=== PATIENT | male | born 1970 | race Caucasian/White ===

== ENCOUNTER 2017-07-02 03:55 | Observation (INO) | payer OTHER ==
[~2017-07-02] VITALS: Ht 175.3 cm; Wt 95.7 kg
[~2017-07-02 03:55] MED LIST: ACHD5005 PO; IBP200T PO; LEVO500T69 PO; METH4TAB PO; NAPR-243 PO
[2017-07-02] MEDS ORDERED: ASPIRIN 81 MG CHEW (CHILDREN'S ASA) PO ONE (04:00)
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
[2017-07-02 04:18] LABS: BASOPHILS % (AUTO) 0 % (0-10); EOSINOPHILS # (AUTO) 0.2 10^3/uL (0.0-0.3); EOSINOPHILS % (AUTO) 3 % (0-10); LYMPHOCYTES # (AUTO) 2.3 X 10^3 (1.0-4.0); LYMPHOCYTES % (AUTO) 25 % (12-44); MEAN CORPUSCULAR HEMOGLOBIN 30 PG (25-34); MEAN CORPUSCULAR HGB CONC 34 G/DL (32-36); MEAN CORPUSCULAR VOLUME 89 FL (80-99); MEAN PLATELET VOLUME 9.1 FL (7.4-10.4); MONOCYTES # (AUTO) 0.7 X 10^3 (0.0-1.0); MONOCYTES % (AUTO) 8 % (0-12); NEUTROPHILS # (AUTO) 5.7 X 10^3 (1.8-7.8); NEUTROPHILS % (AUTO) 64 % (42-75); PLATELET COUNT 199 10^3/uL (130-400); RED BLOOD COUNT 4.92 10^6/uL (4.35-5.85); RED CELL DISTRIBUTION WIDTH 13.1 % (10.0-14.5); WHITE BLOOD COUNT 8.9 10^3/uL (4.3-11.0)
[2017-07-02 04:28] LABS: PROTHROMBIN TIME PATIENT 13.3 SEC (12.2-14.7)
--- NOTE | 2017-07-02 04:30 | ED Chest Pain ---
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 VSS. Nursing Sepsis Screen: No Definite Risk Source: patient, EMS Exam Limitations: no limitations History of Present Illness Time seen by provider: 03:58 Initial Comments Here with report of central chest pain that he is describing poorly. States that is been going on for a few hours. He only identified it after he was arrested. Admits to smoking a large amount of methamphetamine tonight. Complains of not feeling well overall and body shaking. Denies nausea, vomiting , diaphoresis but does report breathing problems. Timing/Duration: 1-3 hours Severity/Quality: moderate, severe, other (pain) Location: central Radiation: no radiation Activities at Onset: other (smoking methamphetamine and being arrested) Prior CP/Workup: no prior cardiac workup Modifying Factors: improves with rest ASA po RECRUITER ACCOUNT MANAGER: No NTG SL RECRUITER ACCOUNT MANAGER: No Associated Symptoms: No abdominal pain, No back pain, No diaphoresis, fatigue, fever/chills, No nausea/vomiting, shortness of breath, weakness Allergies and Home Medications Allergies Coded Allergies: acetaminophen (Verified Adverse Reaction, 11/12/11) NAUSEA oxycodone HCl (Verified Adverse Reaction, 11/12/11) NAUSEA Home Medications Ibuprofen 200 Mg Tablet, 2-3 EACH PO TID - QID PRN PRN for PAIN, #20 Prescribed by: LJ THAKKAR on 06/19/132057 Review of Systems Constitutional: see HPI, No chills, No fever EENTM: No Symptoms Reported Respiratory: See HPI, Denies Cough, Shortness of Air Cardiovascular: Chest Pain, Denies Edema, Denies Irregular Heart Rate Gastrointestinal: No Symptoms Reported, Denies Nausea, Denies Vomiting Genitourinary: No Symptoms Reported Musculoskeletal: no symptoms reported Skin: no symptoms reported Psychiatric/Neurological: See HPI Endocrine: No Symptoms Reported All Other Systems Reviewed Negative Unless Noted: Yes Past Wybpgxs-Xyqwul-Hmbkhp Hx Patient Social History Alcohol Use: Denies Use Recreational Drug Use: Yes (smokes meth daily) Smoking Status: Current Everyday Smoker Type Used: Cigarettes 2nd Hand Smoke Exposure: No Recent Foreign Travel: No Contact w/Someone Who Travel: No Recent Infectious Disease Expo: No Physical Abuse: No Sexual Abuse: No Mistreated: No Fear: No Immunizations Up To Date Tetanus Booster (TDap): Less than 5yrs Surgeries History of Surgeries: Yes (L EYE) Respiratory History of Respiratory Disorde: No Cardiovascular History of Cardiac Disorders: No Neurological History of Neurological Disord: No Reproductive System Hx Reproductive Disorders: No HIV/AIDS: No Gastrointestinal History of Gastrointestinal Di: No Musculoskeletal History of Musculoskeletal Dis: No Endocrine History of Endocrine Disorders: No Cancer History of Cancer: No Psychosocial History of Psychiatric Problem: Yes Behavioral Health Disorders: Schizophrenia Suicide Risk Score: 0 Integumentary History of Skin or Integumenta: No Blood Transfusions History of Blood Disorders: No Adverse Reaction to a Blood Tr: No Reviewed Nursing Assessment Reviewed/Agree w Nursing PMH: Yes Family Medical History Significant Family History: No Pertinent Family Hx Physical Exam Vital Signs Vital Sign - Last 12Hours 07/02/17 04:00 Temp 98.4 Pulse 92 Resp 18 B/P (MAP) 134/86 (102) Pulse Ox 95 O2 Delivery Room Air Capillary Refill : Less Than 3 Seconds General Appearance: WD/WN, Anxious HEENT: PERRL/EOMI, Pharynx Normal Neck: Non Tender, Supple Respiratory: Lungs Clear, Normal Breath Sounds Cardiovascular: Regular Rate, Rhythm, No Edema, No Murmur Gastrointestinal: Non Tender, Soft Extremity: Normal Range of Motion, Non Tender Neurologic/Psychiatric: Alert, Oriented x3 Skin: Normal Color, Warm/Dry Progress/Results/Core Measures Results/Orders Lab Results Laboratory Tests Test 07/02/17 04:05 07/02/17 04:50 07/02/17 05:07 Range/Units White Blood Count 8.9 4.3-11.0 10^3/uL Red Blood Count 4.92 4.35-5.85 10^6/uL Hemoglobin 14.9 13.3-17.7 G/DL Hematocrit 44 40-54 % Mean Corpuscular Volume 89 80-99 FL Mean Corpuscular Hemoglobin 30 25-34 PG Mean Corpuscular Hemoglobin Concent 34 32-36 G/DL Red Cell Distribution Width 13.1 10.0-14.5 % Platelet Count 199 130-400 10^3/uL Mean Platelet Volume 9.1 7.4-10.4 FL Neutrophils (%) (Auto) 64 42-75 % Lymphocytes (%) (Auto) 25 12-44 % Monocytes (%) (Auto) 8 0-12 % Eosinophils (%) (Auto) 3 0-10 % Basophils (%) (Auto) 0 0-10 % Neutrophils # (Auto) 5.7 1.8-7.8 X 10^3 Lymphocytes # (Auto) 2.3 1.0-4.0 X 10^3 Monocytes # (Auto) 0.7 0.0-1.0 X 10^3 Eosinophils # (Auto) 0.2 0.0-0.3 10^3/uL Basophils # (Auto) 0.0 0.0-0.1 10^3/uL Prothrombin Time 13.3 12.2-14.7 SEC INR Comment 1.0 0.8-1.4 Activated Partial Thromboplast Time 30 24-35 SEC Sodium Level 140 135-145 MMOL/L Potassium Level 3.9 3.6-5.0 MMOL/L Chloride Level 105 98-107 MMOL/L Carbon Dioxide Level 27 21-32 MMOL/L Anion Gap 8 5-14 MMOL/L Blood Urea Nitrogen 18 7-18 MG/DL Creatinine 1.01 0.60-1.30 MG/DL Estimat Glomerular Filtration Rate > 60 BUN/Creatinine Ratio 18 Glucose Level 99 70-105 MG/DL Calcium Level 8.7 8.5-10.1 MG/DL Magnesium Level 2.3 1.8-2.4 MG/DL Total Bilirubin 0.7 0.1-1.0 MG/DL Aspartate Amino Transf (AST/SGOT) 53 H 5-34 U/L Alanine Aminotransferase (ALT/SGPT) 93 H 0-55 U/L Alkaline Phosphatase 72 40-136 U/L Myoglobin 235.5 H 10.0-92.0 NG/ML Troponin I < 0.30 <0.30 NG/ML Total Protein 7.5 6.4-8.2 GM/DL Albumin 3.9 3.2-4.5 GM/DL Amylase Level 45 25-125 U/L Lipase 22 8-78 U/L Urine Color YELLOW Urine Clarity CLEAR Urine pH 7 5-9 Urine Specific [place] 1.010 L 1.016-1.022 Urine Protein NEGATIVE NEGATIVE Urine Glucose (UA) NEGATIVE NEGATIVE Urine Ketones NEGATIVE NEGATIVE Urine Nitrite NEGATIVE NEGATIVE Urine Bilirubin NEGATIVE NEGATIVE Urine Urobilinogen NORMAL NORMAL MG/DL Urine Leukocyte Esterase 1+ H NEGATIVE Urine RBC (Auto) 4+ H NEGATIVE Urine RBC 10-25 H /HPF Urine WBC 0-2 /HPF Urine Squamous Epithelial Cells NONE /HPF Urine Renal Epithelial Cells RARE /HPF Urine Crystals PRESENT H /LPF Urine Amorphous Sediment FEW TAINA PHOSPHATE H /LPF Urine Bacteria TRACE /HPF Urine Casts NONE /LPF Urine Mucus SMALL H /LPF Urine Culture Indicated NO Urine Opiates Screen NEGATIVE NEGATIVE Urine Oxycodone Screen NEGATIVE NEGATIVE Urine Methadone Screen NEGATIVE NEGATIVE Urine Propoxyphene Screen NEGATIVE NEGATIVE Urine Barbiturates Screen NEGATIVE NEGATIVE Ur Tricyclic Antidepressants Screen NEGATIVE NEGATIVE Urine Phencyclidine Screen NEGATIVE NEGATIVE Urine Amphetamines Screen POSITIVE H NEGATIVE Urine Methamphetamines Screen NEGATIVE NEGATIVE Urine Benzodiazepines Screen NEGATIVE NEGATIVE Urine Cocaine Screen NEGATIVE NEGATIVE Urine Cannabinoids Screen NEGATIVE NEGATIVE My Orders Orders - LYNN GRAHAM MD Cbc With Automated Diff (07/02/17 04:00) Magnesium (07/02/17 04:00) Chest 1 View, Ap/Pa Only (07/02/17 04:00) Ekg Tracing (07/02/17 04:00) Cardiac Profile 1 (07/02/17 04:00) Comprehensive Metabolic Panel (07/02/17 04:00) Myoglobin Serum (07/02/17 04:00) Protime With Inr (07/02/17 04:00) Partial Thromboplastin Time (07/02/17 04:00) O2 (07/02/17 04:00) Monitor-Rhythm Ecg Trace Only (07/02/17 04:00) Lipid Panel (07/03/17 06:00) Aspirin Chewable Tablet (Baby Aspirin Ch (07/02/17 04:00) Saline Lock/Iv-Start (07/02/17 04:00) Lipase (07/02/17 04:00) Amylase (07/02/17 04:00) Drug Screen Stat (Urine) (07/02/17 04:00) Ua Culture If Indicated (07/02/17 04:00) Creatine Kinase (07/02/17 06:58) Ns Iv 1000 Ml (Sodium Chloride 0.9%) (07/02/17 07:14) Medications Given in ED Current Medications Medications Dose Ordered Sig/Joe Route Start Time Stop Time Status Last Admin Dose Admin Aspirin 324 mg ONCE ONCE PO 07/02/17 04:00 07/02/17 04:02 DC 07/02/17 04:09 324 MG Vital Signs/I&O Vital Sign - Last 12Hours 07/02/17 07/02/17 04:00 04:05 Temp 98.4 Pulse 92 Resp 18 B/P (MAP) 134/86 (102) Pulse Ox 95 96 O2 Delivery Room Air Room Air Blood Pressure Mean: 102 Progress Note : Progress Note Seen and evaluated. IV, labs, EKG and chest x-ray ordered. ASA 324 mg by mouth ordered. Monitor patient. 0600: Myoglobin is elevated. This may be from methamphetamine but cannot rule out cardiac event. Patient will require admission for further rule out of his chest pain. I did discuss the case with Dr. Devries at [phone] and she accepts patient for admission, observation status. Patient is currently pain-free. 1 L normal saline initiated. We will add total CK as myoglobin is elevated. Patient agrees to plan. ECG Initial ECG Impression Date: Jul 02, 2017 Initial ECG Impression Time: 04:01 Initial ECG Rate: 86 Initial ECG Rhythm: Normal Sinus Comment Sinus rhythm with left atrial abnormality. No evidence of ST elevation IA. Similar to previous of May. Interpreted by me. Diagnostic Imaging Diagonstic Imaging: Xray Plain Films/CT/US/NM/MRI: chest Comments No acute findings. Reviewed: Reviewed by Me Departure Communication (Admissions) Time/Spoke to Admitting Phy: 06:54 Time/Spoke to Consulting Phy: 07:18 Impression Impression: Primary Impression: Chest pain Qualified Codes: R07.9 - Chest pain, unspecified Additional Impressions: Methamphetamine abuse Methamphetamine intoxication Disposition: ADMITTED INPATIENT Condition: Stable Admissions Decision to Admit Reason: Admit from ER (General) (a gentleman verified aA consult the old blood sugar methamphetamine last night apparently arrived on the scene of) Decision to Admit/Date: Jul 02, 2017 Time/Decision to Admit Time: 06:54 Departure-Patient Inst. Referrals: NO,LOCAL PHYSICIAN (PCP/Family) Primary Care Physician LYNN GRAHAM MD Jul 02, 2017 04:30
[2017-07-02 04:40] LABS: MYOGLOBIN SERUM 235.5 NG/ML (10.0-92.0)
[2017-07-02 04:42] LABS: ALANINE AMINOTRANSFERASE 93 U/L (0-55); ALBUMIN 3.9 GM/DL (3.2-4.5); AMYLASE 45 U/L (25-125); ANION GAP 8 MMOL/L (5-14); ASPARTATE AMINO TRANSFERASE 53 U/L (5-34); BILIRUBIN,TOTAL 0.7 MG/DL (0.1-1.0); BLOOD UREA NITROGEN 18 MG/DL (7-18); BUN/CREATININE RATIO 18; CALCIUM 8.7 MG/DL (8.5-10.1); CARBON DIOXIDE 27 MMOL/L (21-32); CHLORIDE 105 MMOL/L (98-107); CREATININE SERUM 1.01 MG/DL (0.60-1.30); GFR ESTIMATED > 60; GLUCOSE 99 MG/DL (70-105); LIPASE 22 U/L (8-78); MAGNESIUM 2.3 MG/DL (1.8-2.4); POTASSIUM 3.9 MMOL/L (3.6-5.0); SODIUM 140 MMOL/L (135-145); TOTAL PROTEIN 7.5 GM/DL (6.4-8.2)
[2017-07-02 05:14] LABS: BILIRUBIN,URINE NEGATIVE (NEGATIVE); KETONES,URINE NEGATIVE (NEGATIVE); LEUKOCYTE ESTERASE ,URINE 1+ (NEGATIVE); NITRITE,URINE NEGATIVE (NEGATIVE); PH,URINE 7 (5-9); PROTEIN,URINE NEGATIVE (NEGATIVE); UROBILINOGEN,URINE NORMAL (NORMAL)
[2017-07-02 05:23] LABS: RENAL EPITHELIAL CELLS,URINE RARE /HPF; WBC,URINE 0-2 /HPF
--- NOTE | 2017-07-02 06:58 | Diagnostic Imaging Report ---
EXAM: CHEST 1 VIEW, AP/PA ONLY INDICATION: Chest pain. COMPARISON: Chest radiograph 06/19/2013. FINDINGS: Normal heart size and pulmonary vascularity. No focal pulmonary opacity, pleural effusion or pneumothorax. Osseous structures are unremarkable. IMPRESSION: No acute cardiopulmonary findings. Dictated by: Dictated on workstation # [id number]
[2017-07-02] MEDS ORDERED: NS IV 1000 ML 1,000 ML IV ONE (07:14)
--- OUTSIDE RECORDS SUMMARY | 2017-07-02 07:37 | XMS REPORT | Continuity of Care Document ---
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 Visit Date/Time Discharge Status Pt. Type Provider Facility Loc./Unit Complaint [id number] 06/19/2013 19:50:00 2012 21:06:00 DIS Emergency [id number] 11/16/2012 15:59:00 2012 17:53:00 DIS Emergency [id number] 02/18/2014 09:06:00 02/18/2014 23: 59:59 CLS Outpatient FELICITAS JAVIER ROTH [id number] 02/04/2014 09:09:00 02/04/2014 23: 59:59 CLS Outpatient JAVIER POLK APRN [id number] 01/07/2014 09:21:00 01/07/2014 23: 59:59 CLS Outpatient FELICITAS JAVIER ROTH [id number] 11/20/2012 09:28:00 11/20/2012 23: 59:59 CLS Outpatient JAVIER POLK APRN [id number] 08/21/2012 12:54:00 08/21/2012 23: 59:59 CLS Outpatient LARISSA LABOY LCPC
[2017-07-02 08:20] VITALS: BP 118/72
[2017-07-02 08:35] VITALS: BP 123/71
[2017-07-02] MEDS ORDERED: CATHETER FLUSH 10 ML SYR IV PRN (08:45)
[2017-07-02] MEDS ORDERED: ONDANSETRON 4 MG/2 ML (SDV) Z0FRAN IV PRN (08:45)
[2017-07-02] MEDS ORDERED: NS IV 1000 ML 1,000 ML IV SCH (08:45)
[2017-07-02] MEDS ORDERED: NITROGLYCERIN 0.4 MG SL TABS BTL 25'S SL PRN (08:45)
[2017-07-02] MEDS ORDERED: morphine INJ 4 MG/ML 1 ML (VIAL/SYRINGE) IV PRN (08:45)
[2017-07-02 08:50] VITALS: BP 129/72
[2017-07-02 09:05] VITALS: BP 130/72
--- NOTE | 2017-07-02 09:47 | Consultation-Cardiology ---
HPI-Cardiology Cardiology Consultation Date of Consultation 07/02/17 Date of Admission Time Seen by Provider: 09:44 Indication: chest pain HPI 46 years old gentleman with no significant past medical history, using methamphetamine, brought by police, patient is sleepy, did not provide a full history but denied any chest pain, denied any previous cardiac history, admitted use of methamphetamine, denied any smoking. He is laying down in bed at this time. Comfortable. EKG did not show any acute abnormality. Cardiac enzymes were negative, had elevated myoglobin Home Medications & Allergies Allergies: Coded Allergies: acetaminophen (Verified Adverse Reaction, Unknown, 07/02/17) NAUSEA oxycodone HCl (Verified Adverse Reaction, Unknown, 07/02/17) NAUSEA Home Medication List Reviewed: Yes does not take any medication VML-Neonmc-Onkatu Hx Patient Social History Alcohol Use: Denies Use Recreational Drug Use: Yes (smokes meth daily) Smoking Status: Current Everyday Smoker Type Used: Cigarettes 2nd Hand Smoke Exposure: No Recent Foreign Travel: No Recent Infectious Disease Expo: No Immunizations Up To Date Tetanus Booster (TDap): Less than 5yrs Past Medical History no significant past medical history Family Medical History Significant Family History: No Pertinent Family Hx Family Medical Hx no significant family history Constitutional: no symptoms reported, see HPI, other (fatigue and tired) EENTM: see HPI, no symptoms reported Respiratory: no symptoms reported, see HPI Cardiovascular: see HPI, chest pain Gastrointestinal: no symptoms reported, see HPI Genitourinary: no symptoms reported, see HPI Musculoskeletal: no symptoms reported, see HPI Skin: no symptoms reported, see HPI Psychiatric/Neurological: No Symptoms Reported, See HPI Reviewed Test Results Reviewed Test Results Lab Laboratory Tests Test 07/02/17 04:05 07/02/17 04:50 07/02/17 05:07 Range/Units White Blood Count 8.9 4.3-11.0 10^3/uL Red Blood Count 4.92 4.35-5.85 10^6/uL Hemoglobin 14.9 13.3-17.7 G/DL Hematocrit 44 40-54 % Mean Corpuscular Volume 89 80-99 FL Mean Corpuscular Hemoglobin 30 25-34 PG Mean Corpuscular Hemoglobin Concent 34 32-36 G/DL Red Cell Distribution Width 13.1 10.0-14.5 % Platelet Count 199 130-400 10^3/uL Mean Platelet Volume 9.1 7.4-10.4 FL Neutrophils (%) (Auto) 64 42-75 % Lymphocytes (%) (Auto) 25 12-44 % Monocytes (%) (Auto) 8 0-12 % Eosinophils (%) (Auto) 3 0-10 % Basophils (%) (Auto) 0 0-10 % Neutrophils # (Auto) 5.7 1.8-7.8 X 10^3 Lymphocytes # (Auto) 2.3 1.0-4.0 X 10^3 Monocytes # (Auto) 0.7 0.0-1.0 X 10^3 Eosinophils # (Auto) 0.2 0.0-0.3 10^3/uL Basophils # (Auto) 0.0 0.0-0.1 10^3/uL Prothrombin Time 13.3 12.2-14.7 SEC INR Comment 1.0 0.8-1.4 Activated Partial Thromboplast Time 30 24-35 SEC Sodium Level 140 135-145 MMOL/L Potassium Level 3.9 3.6-5.0 MMOL/L Chloride Level 105 98-107 MMOL/L Carbon Dioxide Level 27 21-32 MMOL/L Anion Gap 8 5-14 MMOL/L Blood Urea Nitrogen 18 7-18 MG/DL Creatinine 1.01 0.60-1.30 MG/DL Estimat Glomerular Filtration Rate > 60 BUN/Creatinine Ratio 18 Glucose Level 99 70-105 MG/DL Calcium Level 8.7 8.5-10.1 MG/DL Magnesium Level 2.3 1.8-2.4 MG/DL Total Bilirubin 0.7 0.1-1.0 MG/DL Aspartate Amino Transf (AST/SGOT) 53 H 5-34 U/L Alanine Aminotransferase (ALT/SGPT) 93 H 0-55 U/L Alkaline Phosphatase 72 40-136 U/L Myoglobin 235.5 H 10.0-92.0 NG/ML Troponin I < 0.30 <0.30 NG/ML Total Protein 7.5 6.4-8.2 GM/DL Albumin 3.9 3.2-4.5 GM/DL Amylase Level 45 25-125 U/L Lipase 22 8-78 U/L Total Creatine Kinase 585 H 30-200 U/L Urine Color YELLOW Urine Clarity CLEAR Urine pH 7 5-9 Urine Specific [place] 1.010 L 1.016-1.022 Urine Protein NEGATIVE NEGATIVE Urine Glucose (UA) NEGATIVE NEGATIVE Urine Ketones NEGATIVE NEGATIVE Urine Nitrite NEGATIVE NEGATIVE Urine Bilirubin NEGATIVE NEGATIVE Urine Urobilinogen NORMAL NORMAL MG/DL Urine Leukocyte Esterase 1+ H NEGATIVE Urine RBC (Auto) 4+ H NEGATIVE Urine RBC 10-25 H /HPF Urine WBC 0-2 /HPF Urine Squamous Epithelial Cells NONE /HPF Urine Renal Epithelial Cells RARE /HPF Urine Crystals PRESENT H /LPF Urine Amorphous Sediment FEW TAINA PHOSPHATE H /LPF Urine Bacteria TRACE /HPF Urine Casts NONE /LPF Urine Mucus SMALL H /LPF Urine Culture Indicated NO Urine Opiates Screen NEGATIVE NEGATIVE Urine Oxycodone Screen NEGATIVE NEGATIVE Urine Methadone Screen NEGATIVE NEGATIVE Urine Propoxyphene Screen NEGATIVE NEGATIVE Urine Barbiturates Screen NEGATIVE NEGATIVE Ur Tricyclic Antidepressants Screen NEGATIVE NEGATIVE Urine Phencyclidine Screen NEGATIVE NEGATIVE Urine Amphetamines Screen POSITIVE H NEGATIVE Urine Methamphetamines Screen NEGATIVE NEGATIVE Urine Benzodiazepines Screen NEGATIVE NEGATIVE Urine Cocaine Screen NEGATIVE NEGATIVE Urine Cannabinoids Screen NEGATIVE NEGATIVE Physical Exam Vital Signs Vital Sign - Last 12Hours 07/02/17 04:00 Temp 98.4 Pulse 92 Resp 18 B/P (MAP) 134/86 (102) Pulse Ox 95 O2 Delivery Room Air Capillary Refill : Less Than 3 Seconds General Appearance: No Apparent Distress, WD/WN Eyes: Bilateral Eye Normal Inspection, Bilateral Eye PERRL, Bilateral Eye EOMI HEENT: PERRL/EOMI, TMs Normal, Normal ENT Inspection, Pharynx Normal Neck: Full Range of Motion, Normal Inspection, Non Tender, Supple, Carotid Bruit Respiratory: Chest Non Tender, Lungs Clear, Normal Breath Sounds, No Accessory Muscle Use, No Respiratory Distress Cardiovascular: Regular Rate, Rhythm, No Edema, No Gallop, No JVD, No Murmur, Normal Peripheral Pulses Gastrointestinal: Normal Bowel Sounds, No Organomegaly, No Pulsatile Mass, Non Tender, Soft Back: Normal Inspection, No CVA Tenderness, No Vertebral Tenderness Extremity: Normal Capillary Refill, Normal Inspection, Normal Range of Motion, Non Tender, No Calf Tenderness, No Pedal Edema Neurologic/Psychiatric: Alert, Oriented x3, No Motor/Sensory Deficits, Normal Mood/Affect Skin: Normal Color, Warm/Dry Lymphatic: No Adenopathy A/P-Cardiology Admission Diagnosis Chest pain nonspecific etiology X Methamphetamine use Assessment/Plan Chest pain nonspecific etiology, atypical in presentation, EKG and cardiac enzymes were negative, history of methamphetamine use. recommend avoiding illicit drugs. Patient will need to have stress test as an outpatient Methamphetamine use. Recommend avoiding illicit drugs Elevated myoglobin and CPK, awaiting second set of troponin, if it is negative okay for discharge and follow-up as an outpatient. Continue IV hydration Clinical Quality Measures AMI/AHF: ASA po Prior to arrival: SHARATH Smith MD Jul 02, 2017 09:47
[2017-07-02 10:10] VITALS: BP 134/67
[2017-07-02 10:30] LABS: MYOGLOBIN SERUM 102.9 NG/ML (10.0-92.0); TROPONIN I < 0.30 NG/ML (<0.30)
--- NOTE | 2017-07-02 10:36 | Short Stay Summary-Hospitalist ---
HPI History of Present Illness: HPI/Chief Complaint Pt is a 46yoCM with a PMH of illicit drug use who presented to the ER with CC of chest pain. He was reportedly arrested for possession of methamphetamine and upon arrest complained of chest pain. He was brought to the ER for evaluation. He reports he is unsure what may have brought his symptoms on. He is very sleepy but able to wake and answer questions appropriately. He denies any current chest pain. He states this has happened before when he does meth. He reports he only uses meth and only smokes it. He denies any SOB, palpitations, diaphoresis, or history of heart disease. He takes no medications. Date Seen 07/02/17 Time Seen by Provider: 10:15 Attending Physician Augie Devries MD PCP No,Local Physician Referring Physician Date of Admission Jul 02, 2017 at 7:33 am Home Medications & Allergies Home Medications Reviewed patient Home Medication Reconciliation Form Allergies Allergies Coded Allergies acetaminophen (Verified Adverse Reaction, Unknown, 07/02/17) NAUSEA oxycodone HCl (Verified Adverse Reaction, Unknown, 07/02/17) NAUSEA Past Isgpjty-Dpgosi-Pxyqdw Hx Patient Social History Alcohol Use: Denies Use Number of Drinks Today: AA Recreational Drug Use: Yes (smokes meth daily) Smoking Status: Current Everyday Smoker Type Used: Cigarettes 2nd Hand Smoke Exposure: No Physical Abuse Screen: No Sexual Abuse: No Recent Foreign Travel: No Contact w/other who traveled: No Recent Infectious Disease Expo: No Immunizations Up To Date Tetanus Booster (TDap): Less than 5yrs Surgeries Yes (L EYE) Respiratory No Cardiovascular No Neurological No Reproductive System Hx Reproductive Disorders: No HIV/AIDS: No Gastrointestinal No Musculoskeletal No Endocrine History of Endocrine Disorders: No Cancer No Psychosocial History of Psychiatric Problem: Yes Behavioral Health Disorders: Schizophrenia Integumentary History of Skin or Integumenta: No Blood Transfusions History of Blood Disorders: No Adverse Reaction to a Blood Tr: No Reviewed Nursing Assessment Reviewed/Agree w Nursing PMH: Yes Family Medical History Significant Family History: No Pertinent Family Hx Review of Systems Constitutional: No chills, No fever EENTM: No blurred vision, No double vision, No nose congestion, No throat pain Respiratory: No cough, No dyspnea on exertion, No short of breath Cardiovascular: see HPI Gastrointestinal: No abdominal pain, No constipation, No diarrhea, No nausea, No vomiting Genitourinary: No dysuria, No frequency Musculoskeletal: No joint pain, No muscle pain Skin: No lesions, No rash Psychiatric/Neurological: Denies Headache, Denies Numbness, Denies Tingling Physical Exam Physical Exam Vital Signs Vital Sign - Last 12Hours 07/02/17 04:00 Temp 98.4 Pulse 92 Resp 18 B/P (MAP) 134/86 (102) Pulse Ox 95 O2 Delivery Room Air Capillary Refill : Less Than 3 Seconds General Appearance: No Apparent Distress, Other (sleepy) HEENT: Moist Mucous Membranes, No Scleral Icterus (L), No Scleral Icterus (R) Neck: Non Tender, Supple Respiratory: Lungs Clear, Normal Breath Sounds, No Accessory Muscle Use, No Respiratory Distress Cardiovascular: Regular Rate, Rhythm, No Edema, No Murmur Gastrointestinal: Normal Bowel Sounds, Non Tender, Soft Extremity: Non Tender, No Calf Tenderness, No Pedal Edema Neurologic/Psychiatric: Alert, Oriented x3, No Aphasia, No Facial Droop Skin: Normal Color, Warm/Dry, Tattoos/Piercings Results Results/Procedures Lab Laboratory Tests 07/02/17 04:05 Short Stay Diagnosis Discharge Diagnosis-Short Stay Admission Diagnosis Chest pain Final Discharge Diagnosis Chest wall pain Conclusion Plan See problems Diagnosis/Problems Diagnosis/Problems (1) Chest wall pain Status: Acute Assessment & Plan: Myoglobin elevated Cardiology consulted, appreciate recs EKG WNL Repeat troponin negative Will need outpatient stress (2) Transaminitis Status: Chronic Assessment & Plan: Will need outpatient hepatitis screen (3) Methamphetamine intoxication Status: Acute Assessment & Plan: Offered resources for cessation and encouraged cessation He declines and states he will continue to do meth Clinical Quality Measures AMI/AHF: ASA po Prior to arrival: No DVT/VTE Risk/Contraindication: Risk Factor Score Per Nursin RFS Level Per Nursing on Admit: 2=Moderate AUGIE DEVRIES MD Jul 02, 2017 10:36
[2017-07-02 11:16] VITALS: BP 134/67
[2017-07-03] MEDS ORDERED: ASPIRIN E.C. 325 MG (ECOTRIN) TABLET PO SCH (09:00)
== END 2017-07-02 10:59 ==
LOC: EDUNIT# 03:55 → ER 03:57 → 4TH 07:33 → UNDOADMOB 07:33 → 4TH 08:35 → UNDODISOB 11:09
PROVIDERS: ADMIT Family Medicine; ATTEND Family Medicine
DX: R07.89 Other chest pain (principal); F15.129 Other stimulant abuse with intoxication, unspecified; F17.210 Nicotine dependence, cigarettes, uncomplicated; F20.9 Schizophrenia, unspecified; R74.8 Abnormal levels of other serum enzymes; R79.0 Abnormal level of blood mineral
CPT/HCPCS: 36415; 71010; 80053; 80306; 81000; 82150; 82550; 83690; 83735; 83874; 84484; 85025; 85610; 85730; 93005; 93041; 94760; G0378

== ENCOUNTER 2018-07-06 15:49 | Emergency (ER) | payer MEDICAID, OTHER ==
[~2018-07-06] VITALS: Ht 175.3 cm; Wt 99.8 kg
--- OUTSIDE RECORDS SUMMARY | 2018-07-06 15:55 | XMS REPORT | Continuity of Care Document ---
Author Author [facility] Organization [facility] Address Unknown Phone Unavailable Care Team Providers Care Jacquard Fixer Name Role Phone NO, LOCAL PHYSICIAN PP Unavailable Insurance Providers Payer Name Policy Number Subscriber Name Relationship [facility] [id number] [facility] 09 [employer] Advance Directives Directive Response Recorded Date Advance Directives N 11/16/12 4:06pm Problems No Known Problems or Medical conditions. Social History History Response Recorded Date/Time Alcohol Use Denies Use 11/16/12 4:06pm Recreational Drug Use N 11/16/12 4:06pm Allergies, Adverse Reactions, Alerts Allergen Type Severity Reaction Last Updated oxycodone HCl Adverse Reaction 11/12/11 acetaminophen Adverse Reaction 11/12/11 Medications Medication Dose Units Route Sig Qty Days No Active Prescriptions or Reported Medications Naproxen (Naprosyn) 1 Each PO BID PRN 20 Levofloxacin (Levaquin 500 Mg) 1 Each PO DAILY 6 Hydrocodone Bit/Acetaminophen (Hydrocodon-Acetaminophen 5-325) 1 - 2 Each PO Q6H PRN 20 Response Recorded Date/Time Status not known Unknown Results No Known Relevant Diagnostic Tests, Laboratory Data and/or Discharge Summary. Encounters Encounter Location Date/Time Departed Emergency Room [facility] IS 3:59pm
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
--- OUTSIDE RECORDS SUMMARY | 2018-07-06 15:55 | XMS REPORT | Continuity of Care Document ---
Author Author [facility] [place] [facility] Organization [facility] [place] [facility] Address Unknown Phone Unavailable Care Team Providers Care Engineering Clerk Name Role Phone NO, LOCAL PHYSICIAN PP Unavailable Insurance Providers Payer Name Policy Number Subscriber Name Relationship [facility] [id number] [facility] 09 Law Enforcement Agency Advance Directives Directive [...] Encounters Encounter Location Date/Time Departed Emergency Room [facility] [place] [facility] IS 3:59pm
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
[2018-07-06] MEDS ORDERED: LIDOCAINE 1% INJ 20 ML 20 ML VIAL ONE (15:57)
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
[2018-07-06] MEDS ORDERED: TETANUS & DIPHTHERIA TOX,ADULT 0.5 ML (TENIVAC) IM ONE (16:32)
[2018-07-06 16:43] VITALS: BP 109/63
[2018-07-06] MEDS ORDERED: TETANUS,DIPTH,PERTUSS P/F (BOOSTRIX) 0.5 ML VIAL IM ONE (16:45)
== END 2018-07-06 16:43 | disposition home or self-care (01) ==
LOC: EDUNIT# 15:49 → ER 15:51
DX: S61.412A Laceration without foreign body of left hand, initial encounter (principal); F20.9 Schizophrenia, unspecified; Z88.5 Allergy status to narcotic agent; Z88.8 Allergy status to other drugs, medicaments and biological substances; W26.8XXA Contact with other sharp object(s), not elsewhere classified, initial encounter
CPT/HCPCS: 12002; 90715

== ENCOUNTER 2019-10-03 05:24 | Inpatient (IN) | payer SELFPAY ==
[~2019-10-03] VITALS: Ht 177.8 cm; Wt 104.0 kg
[2019-10-03] VITALS (18 sets, daily range): BP systolic 99–135; BP diastolic 50–76
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
[2019-10-03] MEDS ORDERED: ROCURONIUM 10 MG/ML 5 ML SYRINGE IV ONE (05:27)
[2019-10-03] MEDS ORDERED: fentaNYL INJECTION 100 MCG/2 ML AMP INJ ONE (05:27)
[2019-10-03] MEDS ORDERED: ETOMIDATE IV SOLN 20 MG/10 ML VIAL IV ONE (05:27)
[2019-10-03] MEDS ORDERED: MIDAZOLAM 5 MG/5 ML (VERSED) VIAL IJ ONE (05:27)
[2019-10-03] MEDS ORDERED: LORazepam INJ 2 MG/ML (ATIVAN) VIAL ONE (05:28)
[2019-10-03] MEDS ORDERED: LORazepam INJ 2 MG/ML (ATIVAN) VIAL IVP ONE ×2 (05:45→06:15)
[2019-10-03 05:47] LABS: MEAN PLATELET VOLUME 9.8 FL (7.4-10.4); RED CELL DISTRIBUTION WIDTH 13.5 % (10.0-14.5); WHITE BLOOD COUNT 10.7 10^3/uL (4.3-11.0)
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
[2019-10-03] MEDS ORDERED: LACTATED RINGERS 1,000 ML IV ONE ×3 (06:01→08:45)
[2019-10-03 06:05] LABS: ALANINE AMINOTRANSFERASE 94 U/L (0-55); ALKALINE PHOSPHATASE 66 U/L (40-136); BILIRUBIN,DIRECT 0.4 MG/DL (0.0-0.3); BILIRUBIN,INDIRECT 0.6 MG/DL; BUN/CREATININE RATIO 13; CALCIUM 8.9 MG/DL (8.5-10.1); CARBON DIOXIDE 20 MMOL/L (21-32); CHLORIDE 108 MMOL/L (98-107); GFR ESTIMATED 59; GLUCOSE 91 MG/DL (70-105); POTASSIUM 3.4 MMOL/L (3.6-5.0); SODIUM 142 MMOL/L (135-145); TOTAL PROTEIN 7.3 GM/DL (6.4-8.2)
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
[2019-10-03 07:06] LABS: BILIRUBIN,URINE NEGATIVE (NEGATIVE); CLARITY,URINE CLEAR; COLOR,URINE YELLOW; GLUCOSE, URINE (UA) NEGATIVE (NEGATIVE); KETONES,URINE 2+ (NEGATIVE); LEUKOCYTE ESTERASE ,URINE NEGATIVE (NEGATIVE); NITRITE,URINE NEGATIVE (NEGATIVE); PROTEIN,URINE 1+ (NEGATIVE)
--- NOTE | 2019-10-03 07:22 | NUR ---
ET TUBE PULLED BACK TO 22@LIP BY DR LOPEZ AFTER PORTABLE CXR.
[2019-10-03 07:26] LABS: BARBITURATE SCREEN URINE NEGATIVE (NEGATIVE); CANNABINOID SCREEN, URINE NEGATIVE (NEGATIVE); COCAINE SCREEN URINE NEGATIVE (NEGATIVE); OPIATE SCREEN URINE NEGATIVE (NEGATIVE); TRICYCLIC ANTIDEPRESSANTS SCRE NEGATIVE (NEGATIVE)
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
[2019-10-03 07:27] LABS: AMPHETAMINE SCREEN, URINE POSITIVE (NEGATIVE); METHADONE STAT NEGATIVE (NEGATIVE); METHAMPHETAMINE SCREEN URINE S POSITIVE (NEGATIVE); OXYCODONE STAT NEGATIVE (NEGATIVE); PROPOXYPHENE STAT NEGATIVE (NEGATIVE)
[2019-10-03 07:28] LABS: BENZODIAZEPINES SCREEN URINE POSITIVE (NEGATIVE)
--- NOTE | 2019-10-03 07:28 | Diagnostic Imaging Report ---
INDICATION: Postintubation. EXAMINATION: Single view chest 10/03/2019. FINDINGS: Single portable view of the chest demonstrates ET tube extending into the right main bronchus and should be pulled back. There is marked loss of volume in left hemithorax due to underlying atelectasis. No significant effusions. Right lung is grossly clear but follow-up is recommended. IMPRESSION: 1. ET tube tip extends into the right main bronchus and should be pulled back. Findings called to Emergency Room by Dr. Troy at the time of dictation on 10/03/2019 at 7:25 a.m. Dictated by: Dictated on workstation # [id number]
[2019-10-03] MEDS: fentaNYL INJECTION 1,250 MCG in NS (IVPB) 250 ML IV SCH ×4 (07:30→13:33)
[2019-10-03] MEDS: MIDAZOLAM INJECTION FOR DRIPS 50 MG in NS (IVPB) 90 ML IV SCH ×3 (07:30→13:30)
--- NOTE | 2019-10-03 07:30 | NUR ---
FENTYL AND VERSED GTT STARTED ORDERD IN R HAND. LR RESTARTED
--- NOTE | 2019-10-03 07:30 | NUR ---
FENTENYL 100MCG IV GIVEN PER DR VERBAL ORDER.
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
--- NOTE | 2019-10-03 07:42 | Diagnostic Imaging Report ---
INDICATION: Intubated with ET tube extending into the right main bronchus. ET tube pulled back. EXAMINATION: Chest 10/03/2019 at 7:33 a.m. COMPARISON: 10/03/2019 at 7:14 a.m. FINDINGS: ET tube has been retracted with the tip now lying in the mid trachea. Feeding tube courses beneath diaphragm. The heart is prominent. Pulmonary vasculature is congested similar to previous. There is improved atelectasis throughout the left chest but persistent airspace opacities noted some of which could be due to infiltrate as well. Follow-up recommended. IMPRESSION: 1. ET tube retracted with better aeration of the left lung. Residual airspace opacities as above. 2. Pulmonary vascular congestion. Dictated by: Dictated on workstation # [id number]
[2019-10-03 07:43] LABS: BACTERIA,URINE NEGATIVE /HPF; WBC,URINE 0-2 /HPF
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
--- NOTE | 2019-10-03 08:00 | NUR ---
AX TEMP 37.1 PT SWEATING AT THIS X. SEDATION CONT
[2019-10-03 08:33] LABS: ABG BASE EXCESS 0.6 MMOL/L (-2.5-2.5); ABG OXYGEN SATURATION 100 % (94-100); ABG PCO2 47 MMHG (35-45); ABG PH 7.36 (7.37-7.43); ABG PO2 186 MMHG (79-93); ABG TCO2 26.9 MMOL/L (21.0-31.0)
[2019-10-03 08:38] LABS: ALLENS TEST YES-POS; INSPIRED O2 75; PATIENT TEMP 37.1; VENTILATOR YES
--- NOTE | 2019-10-03 09:04 | NUR ---
VENT ADJUSTED PEEP 5, 500/18, FIO2 [address] LOPEZ
--- NOTE | 2019-10-03 09:15 | NUR ---
REPOSTIONED PT TO L SIDE
--- NOTE | 2019-10-03 09:20 | NUR ---
PT THRASHING EXT, PT SUCTIONED W ADI. DR LOPEZ NOTIFIED
[2019-10-03] MEDS ORDERED: MIDAZOLAM 5 MG/5 ML (VERSED) VIAL ONE ×2 (09:22→10:57)
[2019-10-03] MEDS ORDERED: fentaNYL INJECTION 100 MCG/2 ML AMP ONE (09:23)
--- NOTE | 2019-10-03 09:25 | NUR ---
IV VERSED 5MG IV GIVEN ORDERED FENTLY 100MCG GIVEN ORDERED. INCREASED FENLY GTT TO 20MLS/HR AND VERSED GTT TO 6ML/HR ORDERED BY DR LOPEZ
--- NOTE | 2019-10-03 09:30 | NUR ---
RT HERE TO SUCTION PT
[2019-10-03] MEDS ORDERED: DexMEDEtomidine 250 ML DRIP 250 ML IV SCH (09:45)
--- NOTE | 2019-10-03 10:00 | Diagnostic Imaging Report ---
EXAMINATION: Chest 1 view HISTORY: Check endotracheal tube. COMPARISON: Chest radiograph performed earlier the same date. FINDINGS: There is appropriate configuration of the endotracheal tube and enteric tube. Platelike atelectasis is again seen in the left mid lung and left lung base. No focal consolidations. No large pleural effusion or pneumothorax is seen. The cardiomediastinal silhouette is prominent with central pulmonary vascular congestion. No acute osseous abnormality is seen. IMPRESSION: 1. Appropriate configuration of the endotracheal tube and enteric tube. 2. Stable central pulmonary vascular congestion with unchanged platelike atelectasis in the mid and lower left lung. Dictated by: Dictated on workstation # [id number]
[2019-10-03 10:04] LABS: ABG BASE EXCESS -3.3 MMOL/L (-2.5-2.5); ABG OXYGEN SATURATION 96 % (94-100); ABG PCO2 51 MMHG (35-45); ABG PO2 87 MMHG (79-93); ABG TCO2 24.2 MMOL/L (21.0-31.0)
[2019-10-03 10:06] LABS: ABG PH 7.27 (7.37-7.43)
[2019-10-03 10:07] LABS: ALLENS TEST YES-POS; INSPIRED O2 50; PATIENT TEMP 37.1; VENTILATOR YES
--- NOTE | 2019-10-03 10:09 | NUR ---
INCREASED RATES TO 22 AND 550 ON END TIDAL
[2019-10-03] MEDS: NS IV 1000 ML 1,000 ML IV SCH ×2 (10:45→13:25)
[2019-10-03] MEDS ORDERED: PROPOFOL DRIP (ICU) 100 ML IV ONE (10:47)
[2019-10-03] MEDS ORDERED: MIDAZOLAM 5 MG/5 ML (VERSED) VIAL IVP ONE (11:15)
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
[2019-10-03] MEDS ORDERED: MIDAZOLAM INJECTION FOR DRIPS 50 MG in NS (IVPB) 90 ML IV SCH ×2 (11:30→13:00)
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
[2019-10-03] MEDS ORDERED: ONDANSETRON 4 MG/2 ML (SDV) Z0FRAN IVP PRN (11:45)
[2019-10-03] MEDS ORDERED: PROPOFOL DRIP (ICU) 100 ML IV STA (11:56)
[2019-10-03] MEDS ORDERED: HALOPERIDOL 5 MG/ML (HALDOL) AMP IV PRN (12:00)
[2019-10-03 12:28] LABS: ABG OXYGEN SATURATION 94 % (94-100); ABG PCO2 43 MMHG (35-45); ABG PH 7.39 (7.37-7.43); ABG PO2 67 MMHG (79-93); ABG TCO2 26.7 MMOL/L (21.0-31.0)
[2019-10-03 12:32] LABS: INSPIRED O2 30%; PATIENT TEMP 37.3; VENTILATOR YES
[2019-10-03] MEDS ORDERED: ACETAMINOPHEN 325 MG TABLET PO PRN (14:15)
--- NOTE | 2019-10-03 15:16 | NUR ---
"Received dietary consult regarding pt's vent status. Est. kcal needs: [id number] kcal | 20-25 kcal/kg Est. Pro needs: 73-91 g Pro | 0.8-1.0 g Pro/kg If pt is to remain NPO for more than 3d, would recommend initiation of the following TF: Jevity 1.5 at goal rate of 50ml/hr. Begin at 10ml/hr and increase by 10ml q6h as tolerated. Monitor gastric residuals for tolerance. At goal rate, provides 1800 kcal (20 kcal/kg); 77 g Pro (0.8 g Pro/kg); and 912ml free water. Flush with 75ml H2O q4h for hydration status. With flushes, provides 1362ml free water. Will continue to follow and reassess as pt needs, intake, and status change. Rohini Boston, MS, RD, LD"
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
[2019-10-03] MEDS: MIDAZOLAM DRIP 50 MG/NS 90 ML IV SCH ×4 (15:54→23:00)
[2019-10-03] MEDS: 1/2 NS W/KCL 20 MEQ/L 1,000 ML IV SCH ×2 (15:54→21:28)
[2019-10-03] MEDS: ENOXAPARIN 40 MG/0.4 ML (LOVENOX) SYR SQ SCH (16:32)
[2019-10-03] MEDS: HALOPERIDOL 5 MG/ML (HALDOL) AMP IV SCH ×2 (16:33→20:34)
[2019-10-03] MEDS: PROPOFOL DRIP (ICU) 100 ML IV SCH (20:25)
[2019-10-03] MEDS: LORazepam INJ 2 MG/ML (ATIVAN) VIAL IVP PRN (20:34)
[2019-10-04] VITALS (30 sets, daily range): BP systolic 92–152; BP diastolic 47–87
[2019-10-04] MEDS: PROPOFOL DRIP (ICU) 100 ML IV SCH ×4 (03:21→22:00)
[2019-10-04] MEDS: LORazepam INJ 2 MG/ML (ATIVAN) VIAL IVP PRN (03:21)
[2019-10-04 03:40] LABS: ABG BASE EXCESS 0.1 MMOL/L (-2.5-2.5); ABG OXYGEN SATURATION 94 % (94-100); ABG PCO2 42 MMHG (35-45); ABG PH 7.39 (7.37-7.43); ABG PO2 65 MMHG (79-93); ABG TCO2 25.8 MMOL/L (21.0-31.0)
[2019-10-04 03:42] LABS: ALLENS TEST YES-POS; INSPIRED O2 40%; VENTILATOR YES
[2019-10-04 03:50] LABS: BASOPHILS % (AUTO) 0 % (0-10); EOSINOPHILS # (AUTO) 0.2 10^3/uL (0.0-0.3); EOSINOPHILS % (AUTO) 2 % (0-10); HEMATOCRIT 40 % (40-54); HEMOGLOBIN 13.4 G/DL (13.3-17.7); LYMPHOCYTES # (AUTO) 1.5 X 10^3 (1.0-4.0); LYMPHOCYTES % (AUTO) 18 % (12-44); MEAN CORPUSCULAR HEMOGLOBIN 31 PG (25-34); MEAN CORPUSCULAR HGB CONC 34 G/DL (32-36); MEAN CORPUSCULAR VOLUME 92 FL (80-99); MEAN PLATELET VOLUME 10.3 FL (7.4-10.4); MONOCYTES # (AUTO) 0.6 X 10^3 (0.0-1.0); MONOCYTES % (AUTO) 7 % (0-12); NEUTROPHILS # (AUTO) 6.2 X 10^3 (1.8-7.8); NEUTROPHILS % (AUTO) 73 % (42-75); PLATELET COUNT 144 10^3/uL (130-400); RED CELL DISTRIBUTION WIDTH 14.2 % (10.0-14.5); WHITE BLOOD COUNT 8.4 10^3/uL (4.3-11.0)
[2019-10-04] MEDS: 1/2 NS W/KCL 20 MEQ/L 1,000 ML IV SCH ×4 (03:53→23:54)
[2019-10-04 04:20] LABS: BUN/CREATININE RATIO 13; CALCIUM 7.7 MG/DL (8.5-10.1); CARBON DIOXIDE 20 MMOL/L (21-32); CHLORIDE 108 MMOL/L (98-107); CREATININE SERUM 0.77 MG/DL (0.60-1.30); GFR ESTIMATED > 60; GLUCOSE 88 MG/DL (70-105); MAGNESIUM 2.2 MG/DL (1.6-2.4); PHOSPHORUS 2.3 MG/DL (2.3-4.7); POTASSIUM 3.9 MMOL/L (3.6-5.0); SODIUM 139 MMOL/L (135-145)
--- NOTE | 2019-10-04 05:01 | Pulmonary Progress Note ---
Subjective Time Seen by a Provider: 05:00 Sepsis Event Evaluation Height, Weight, BMI Height: 5'9.00" Weight: 220lbs. 0.0oz. 99.599366pk; 28.00 BMI Method:Stated Exam Exam Vital Signs Date Time Temp Pulse Resp B/P (MAP) Pulse Ox O2 Delivery O2 Flow Rate FiO2 10/04/19 04:00 37.0 10/04/19 04:00 98 Mechanical Ventilator 40 10/04/19 03:21 96 10/04/19 02:34 92 21 93 40 10/04/19 01:00 87 10/04/19 00:00 98 Mechanical Ventilator 40 10/04/19 00:00 37.2 10/03/19 23:00 81 20 128/71 (90) 98 Mechanical Ventilator 40.00 10/03/19 23:00 81 10/03/19 22:43 Mechanical Ventilator 40.00 10/03/19 22:34 80 20 94 40 10/03/19 22:00 82 19 126/66 (86) 89 Mechanical Ventilator 21.00 10/03/19 21:00 81 19 116/62 (80) 94 Mechanical Ventilator 21.00 10/03/19 20:25 93 135/76 10/03/19 20:00 86 21 135/76 (95) 94 Mechanical Ventilator 21.00 10/03/19 20:00 94 Mechanical Ventilator 10/03/19 19:07 37.0 10/03/19 19:00 85 26 119/67 (84) 94 Mechanical Ventilator 21.00 10/03/19 19:00 85 10/03/19 18:59 84 20 94 21 10/03/19 18:00 75 20 99/53 (68) 96 Mechanical Ventilator 21.00 10/03/19 17:00 74 19 105/50 (68) 96 Mechanical Ventilator 21.00 10/03/19 16:00 98 Mechanical Ventilator 10/03/19 16:00 73 19 99/53 (68) 96 Mechanical Ventilator 21.00 10/03/19 15:54 99/54 10/03/19 15:33 72 20 98 25 10/03/19 15:14 37.3 10/03/19 15:00 72 20 99/54 (69) 98 Mechanical Ventilator 21.00 10/03/19 14:10 72 20 98 25 10/03/19 14:00 72 19 99/52 (68) 100 Mechanical Ventilator 21.00 10/03/19 13:34 73 103/50 10/03/19 13:31 73 103/50 10/03/19 13:30 73 103/50 10/03/19 13:00 78 20 99/54 (69) 100 Mechanical Ventilator 21.00 10/03/19 12:50 82 10/03/19 12:17 37.4 10/03/19 12:00 98 Mechanical Ventilator 10/03/19 12:00 86 20 104/58 (73) 99 Mechanical Ventilator 21.00 10/03/19 11:07 91 22 103/56 99 Mechanical Ventilator 10/03/19 10:22 96 16 99 45 10/03/19 10:19 96 105/57 10/03/19 07:57 100 16 99 75 10/03/19 07:45 102 12 106/59 10/03/19 07:30 102 12 102/69 10/03/19 05:24 36.8 131 20 122/66 (84) 93 Room Air I & O 10/04/19 07:00 Intake Total 2100 ml Output Total 1075 ml Balance 1025 ml Height & Weight Height: 5'9.00" Weight: 220lbs. 0.0oz. 99.403074fz; 28.00 BMI Method:Stated General Appearance: WD/WN, Other (intubated) HEENT: Moist Mucous Membranes, Other (ETT in place) Neck: Normal Inspection, Supple Respiratory: Rhonci, Other (on vent) Cardiovascular: Regular Rate, Rhythm, No Murmur Capillary Refill: Less Than 3 Seconds Peripheral Pulses: 2+ Dorsalis Pedis (R), 2+ Left Dors-Pedis (L), 2+ Radial Pulses (R), 2+ Radial Pulses (L) Gastrointestinal: normal bowel sounds, non tender, soft, no organomegaly Extremity: No Calf Tenderness, No Pedal Edema Neurologic/Psychiatric: Other (sedated, resting comfortably) Results Lab Laboratory Tests 10/03/19 05:29 10/04/19 03:21 Assessment/Plan Assessment/Plan Acute psychosis secondary to methamphetamine -Pt became very psychotic/combative while in ED prior to intubation -Start rispiradol and geodon PO today. Will plan on vent weaning tomorrow morning. Acute respiratory failure secondary to sedation -Continue vent for now Pulmonary edema -Monitor Rhabdomyolysis -IVF -Recheck labs ADA BORDEN DO Oct 04, 2019 05:01
[2019-10-04] MEDS: POTASSIUM CL 10MEQ/50ML IVPB 50 ML IV SCH (06:17)
[2019-10-04] MEDS: KCL 20 MEQ TAB (K-DUR) PO SCH (06:18)
[2019-10-04] MEDS: MAGNESIUM 1 GM/100 ML IVPB 100 ML IV SCH (06:18)
--- NOTE | 2019-10-04 07:08 | Diagnostic Imaging Report ---
INDICATION: Dyspnea. COMPARISON: 10/03/2019 FINDINGS: Heart size is normal. There is mild venous congestion. There is discoid atelectasis in the left lung base. ET and NG tubes are in place. No pleural effusion or pneumothorax. IMPRESSION: Mild venous congestion with some discoid atelectasis in the left lung base. Dictated by: Dictated on workstation # [id number]
--- NOTE | 2019-10-04 08:09 | Physical Therapy Progress Note ---
Therapy Progress Note Patient currently sedated and on mechanical ventilator. PT will continue to monitor patient status and initiate treatment when patient is medically stable and able to actively participate with skilled therapy. DAYNE GUNEDRSON PT Oct 04, 2019 08:08
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
[2019-10-04] MEDS: HALOPERIDOL 5 MG/ML (HALDOL) AMP IV SCH ×2 (08:52→20:47)
[2019-10-04] MEDS: PANTOPRAZOLE 40 MG (PROTONIX) VIAL IV SCH (08:52)
--- NOTE | 2019-10-04 09:15 | Occ Therapy Progress Note ---
Therapy Progress Note Patient currently sedated and on mechanical ventilator. OT will continue to monitor patient status and initiate treatment when patient is medically stable and able to actively participate with skilled therapy. MASSIEL ZIMMER OT Oct 04, 2019 09:14
--- NOTE | 2019-10-04 11:40 | Progress Note ---
Subjective Date Seen by a Provider: Oct 04, 2019 Time Seen by a Provider: 11:30 Subjective/Events-last exam on vent/sedated. no signs trauma. Objective Exam Vital Signs Date Time Temp Pulse Resp B/P (MAP) Pulse Ox O2 Delivery O2 Flow Rate FiO2 10/04/19 10:19 78 26 99 35 10/04/19 08:54 101 142/84 10/04/19 08:00 98 Mechanical Ventilator 35 10/04/19 08:00 37.3 10/04/19 07:26 100 27 96 35 10/04/19 07:00 100 23 145/78 (100) 97 Mechanical Ventilator 40.00 10/04/19 06:00 94 24 144/82 (102) 97 Mechanical Ventilator 40.00 10/04/19 05:00 97 21 137/87 (104) 97 Mechanical Ventilator 40.00 10/04/19 04:00 97 23 125/78 (94) 98 Mechanical Ventilator 40.00 10/04/19 04:00 37.0 10/04/19 04:00 98 Mechanical Ventilator 40 10/04/19 03:21 96 10/04/19 03:00 92 20 124/77 (93) 92 Mechanical Ventilator 40.00 10/04/19 02:34 92 21 93 40 10/04/19 02:00 90 20 145/85 (105) 94 Mechanical Ventilator 40.00 10/04/19 01:00 87 10/04/19 01:00 87 19 145/86 (105) 95 Mechanical Ventilator 40.00 10/04/19 00:00 98 Mechanical Ventilator 40 10/04/19 00:00 37.2 10/04/19 00:00 85 16 144/86 (105) 94 Mechanical Ventilator 40.00 10/03/19 23:00 81 20 128/71 (90) 98 Mechanical Ventilator 40.00 10/03/19 23:00 81 10/03/19 22:43 Mechanical Ventilator 40.00 10/03/19 22:34 80 20 94 40 10/03/19 22:00 82 19 126/66 (86) 89 Mechanical Ventilator 21.00 10/03/19 21:00 81 19 116/62 (80) 94 Mechanical Ventilator 21.00 10/03/19 20:25 93 135/76 10/03/19 20:00 86 21 135/76 (95) 94 Mechanical Ventilator 21.00 10/03/19 20:00 94 Mechanical Ventilator 10/03/19 19:07 37.0 10/03/19 19:00 85 26 119/67 (84) 94 Mechanical Ventilator 21.00 10/03/19 19:00 85 10/03/19 18:59 84 20 94 21 10/03/19 18:00 75 20 99/53 (68) 96 Mechanical Ventilator 21.00 10/03/19 17:00 74 19 105/50 (68) 96 Mechanical Ventilator 21.00 10/03/19 16:00 98 Mechanical Ventilator 10/03/19 16:00 73 19 99/53 (68) 96 Mechanical Ventilator 21.00 10/03/19 15:54 99/54 10/03/19 15:33 72 20 98 25 10/03/19 15:14 37.3 10/03/19 15:00 72 20 99/54 (69) 98 Mechanical Ventilator 21.00 10/03/19 14:10 72 20 98 25 10/03/19 14:00 72 19 99/52 (68) 100 Mechanical Ventilator 21.00 10/03/19 13:34 73 103/50 10/03/19 13:31 73 103/50 10/03/19 13:30 73 103/50 10/03/19 13:00 78 20 99/54 (69) 100 Mechanical Ventilator 21.00 10/03/19 12:50 82 10/03/19 12:17 37.4 10/03/19 12:00 98 Mechanical Ventilator 10/03/19 12:00 86 20 104/58 (73) 99 Mechanical Ventilator 21.00 I & O 10/04/19 07:00 Intake Total 2100 ml Output Total 1325 ml Balance 775 ml Capillary Refill : Less Than 3 Seconds General Appearance: No Apparent Distress HEENT: PERRL/EOMI Neck: Full Range of Motion Respiratory: Chest Non Tender, Lungs Clear Cardiovascular: Regular Rate, Rhythm Gastrointestinal: normal bowel sounds, non tender, soft Extremity: Normal Capillary Refill Neurologic/Psychiatric: Alert, Oriented x3 Skin: Normal Color Lymphatic: No Adenopathy Results Lab Laboratory Tests 10/03/19 12:15: Blood Gas Puncture Site UNK, Blood Gas Patient Temperature 37.3, Arterial Blood pH 7.39, Arterial Blood Partial Pressure CO2 43, Arterial Blood Partial Pressure O2 67L, Arterial Blood HCO3 25, Arterial Blood Total CO2 26.7, Arterial Blood Oxygen Saturation 94, Arterial Blood Base Excess 1.0, Jordan Test UNK, Blood Gas Ventilator Setting YES, Blood Gas Inspired Oxygen 30% 10/03/19 17:37: Glucometer 92 10/04/19 00:07: Glucometer 90 10/04/19 03:21: White Blood Count 8.4, Red Blood Count 4.33L, Hemoglobin 13.4, Hematocrit 40, Mean Corpuscular Volume 92, Mean Corpuscular Hemoglobin 31, Mean Corpuscular Hemoglobin Concent 34, Red Cell Distribution Width 14.2, Platelet Count 144, Mean Platelet Volume 10.3, Neutrophils (%) (Auto) 73, Lymphocytes (%) (Auto) 18, Monocytes (%) (Auto) 7, Eosinophils (%) (Auto) 2, Basophils (%) (Auto) 0, Neutrophils # (Auto) 6.2, Lymphocytes # (Auto) 1.5, Monocytes # (Auto) 0.6, Eosi nophils # (Auto) 0.2, Basophils # (Auto) 0.0, Sodium Level 139, Potassium Level 3.9, Chloride Level 108H, Carbon Dioxide Level 20L, Anion Gap 11, Blood Urea Nitrogen 10, Creatinine 0.77, Estimat Glomerular Filtration Rate > 60, BUN/Creatinine Ratio 13, Glucose Level 88, Calcium Level 7.7L, Phosphorus Level 2.3, Magnesium Level 2.2, Total Creatine Kinase 1675H, Myoglobin 503.8H, B-Type Natriuretic Peptide < 10.0 10/04/19 03:30: Blood Gas Puncture Site R RAD, Blood Gas Patient Temperature 37.0, Arterial Blood pH 7.39, Arterial Blood Partial Pressure CO2 42, Arterial Blood Partial Pressure O2 65L, Arterial Blood HCO3 25, Arterial Blood Total CO2 25.8, Arterial Blood Oxygen Saturation 94, Arterial Blood Base Excess 0.1, Jordan Test YES-POS, Blood Gas Ventilator Setting YES, Blood Gas Inspired Oxygen 40% Microbiology 10/03/19 MRSA Screen - Final, Complete Assessment/Plan Assessment/Plan Assess & Plan/Chief Complaint meth overdose with respiratory failure and rhabdomyolysis. cont vent ween. cont high u/o and alkalanize urine. Clinical Quality Measures DVT/VTE Risk/Contraindication: Risk Factor Score Per Nursin RFS Level Per Nursing on Admit: 3=High VENITA WYATT MD Oct 04, 2019 11:40
[2019-10-04] MEDS: fentaNYL INJECTION 1,250 MCG in NS (IVPB) 250 ML IV SCH (12:52)
[2019-10-04] MEDS: MIDAZOLAM DRIP 50 MG/NS 90 ML IV SCH ×2 (14:48)
[2019-10-04] MEDS: ENOXAPARIN 40 MG/0.4 ML (LOVENOX) SYR SQ SCH (15:59)
[2019-10-05] VITALS (30 sets, daily range): BP systolic 99–141; BP diastolic 47–79
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
[2019-10-05 03:10] LABS: ABG BASE EXCESS -1.2 MMOL/L (-2.5-2.5); ABG OXYGEN SATURATION 99 % (94-100); ABG PCO2 41 MMHG (35-45); ABG PH 7.37 (7.37-7.43); ABG PO2 105 MMHG (79-93); ABG TCO2 24.7 MMOL/L (21.0-31.0)
[2019-10-05 03:11] LABS: ALLENS TEST YES-POS; INSPIRED O2 35%; PATIENT TEMP 36.6; VENTILATOR YES
[2019-10-05] MEDS: LORazepam INJ 2 MG/ML (ATIVAN) VIAL IVP PRN (03:49)
[2019-10-05 04:26] LABS: BASOPHILS % (AUTO) 0 % (0-10); EOSINOPHILS # (AUTO) 0.2 10^3/uL (0.0-0.3); EOSINOPHILS % (AUTO) 2 % (0-10); HEMATOCRIT 38 % (40-54); HEMOGLOBIN 12.6 G/DL (13.3-17.7); LYMPHOCYTES # (AUTO) 1.4 X 10^3 (1.0-4.0); LYMPHOCYTES % (AUTO) 16 % (12-44); MEAN CORPUSCULAR HEMOGLOBIN 30 PG (25-34); MEAN CORPUSCULAR HGB CONC 33 G/DL (32-36); MEAN CORPUSCULAR VOLUME 92 FL (80-99); MEAN PLATELET VOLUME 9.9 FL (7.4-10.4); MONOCYTES # (AUTO) 0.6 X 10^3 (0.0-1.0); MONOCYTES % (AUTO) 7 % (0-12); NEUTROPHILS # (AUTO) 6.2 X 10^3 (1.8-7.8); NEUTROPHILS % (AUTO) 74 % (42-75); PLATELET COUNT 133 10^3/uL (130-400); RED CELL DISTRIBUTION WIDTH 13.6 % (10.0-14.5); WHITE BLOOD COUNT 8.4 10^3/uL (4.3-11.0)
[2019-10-05 04:47] LABS: BUN/CREATININE RATIO 13; CALCIUM 7.9 MG/DL (8.5-10.1); CARBON DIOXIDE 21 MMOL/L (21-32); CHLORIDE 107 MMOL/L (98-107); CREATINE KINASE 1501 U/L (30-200); CREATININE SERUM 0.78 MG/DL (0.60-1.30); GFR ESTIMATED > 60; GLUCOSE 80 MG/DL (70-105); PHOSPHORUS 2.1 MG/DL (2.3-4.7); POTASSIUM 4.3 MMOL/L (3.6-5.0); SODIUM 137 MMOL/L (135-145); TRIGLYCERIDES 93 MG/DL (<150)
[2019-10-05] MEDS ORDERED: SODIUM PHOSPHATE INJ 30 MM in NS (IVPB) 250 ML IV ONE (05:15)
[2019-10-05] MEDS ORDERED: ZIPRASIDONE 20 MG INJ (GEODON) VIAL IM PRN (05:15)
[2019-10-05] MEDS ORDERED: HALOPERIDOL 5 MG/ML (HALDOL) AMP IV PRN (05:15)
[2019-10-05] MEDS: POTASSIUM CL 10MEQ/50ML IVPB 50 ML IV SCH (05:49)
[2019-10-05] MEDS: MAGNESIUM 1 GM/100 ML IVPB 100 ML IV SCH (05:49)
[2019-10-05] MEDS: KCL 20 MEQ TAB (K-DUR) PO SCH (05:49)
[2019-10-05] MEDS: 1/2 NS W/KCL 20 MEQ/L 1,000 ML IV SCH ×3 (06:30→20:01)
[2019-10-05] MEDS: PROPOFOL DRIP (ICU) 100 ML IV SCH ×3 (06:31→20:01)
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
[2019-10-05] MEDS ORDERED: ZIPRASIDONE 20 MG (GEODON) CAP PO SCH (07:00)
--- NOTE | 2019-10-05 07:28 | Diagnostic Imaging Report ---
Indication: Dyspnea. Comparison: 10/04/2019. Discussion: Single portable upright view of the chest was obtained. Cardiomegaly is stable. Endotracheal tube and enteric tube are stable. Low lung volumes. No new consolidation. No pneumothorax. No osseous abnormality. Impression: 1. Stable chest. Dictated by: Dictated on workstation # [id number]
[2019-10-05] MEDS: ZIPRASIDONE 20 MG (GEODON) CAP PO SCH ×2 (07:56→21:03)
[2019-10-05] MEDS: risperiDONE 2 MG (RisperDAL) TAB PO SCH ×2 (07:56→21:03)
[2019-10-05] MEDS: PANTOPRAZOLE 40 MG (PROTONIX) VIAL IV SCH (07:56)
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
[2019-10-05] MEDS: MIDAZOLAM DRIP 50 MG/NS 90 ML IV SCH ×4 (09:03→23:43)
[2019-10-05] MEDS: MUPIROCIN 2% OINT 22 GM (BACTROBAN) TUBE NSEACH SCH ×2 (09:16→21:03)
[2019-10-05 10:41] LABS: ABG BASE EXCESS -2.2 MMOL/L (-2.5-2.5); ABG OXYGEN SATURATION 84 % (94-100); ABG PCO2 36 MMHG (35-45); ABG PO2 48 MMHG (79-93)
[2019-10-05 10:49] LABS: ALLENS TEST YES-POS
[2019-10-05 10:50] LABS: INSPIRED O2 21%; VENTILATOR NO
--- NOTE | 2019-10-05 10:59 | Physical Therapy Progress Note ---
Therapy Progress Note Pt. intubated and sedated, will re-check patient status 10/07/19 for therapy evaluation. CHANG BRAMBILA PT Oct 05, 2019 10:59
[2019-10-05 11:34] LABS: BILIRUBIN,URINE NEGATIVE (NEGATIVE); CLARITY,URINE CLEAR; COLOR,URINE YELLOW; GLUCOSE, URINE (UA) NEGATIVE (NEGATIVE); KETONES,URINE 3+ (NEGATIVE); LEUKOCYTE ESTERASE ,URINE NEGATIVE (NEGATIVE); NITRITE,URINE NEGATIVE (NEGATIVE); PH,URINE 5.5 (5-9); PROTEIN,URINE NEGATIVE (NEGATIVE)
[2019-10-05 11:44] LABS: BACTERIA,URINE NEGATIVE /HPF; RBC,URINE RARE /HPF
[2019-10-05] MEDS: fentaNYL INJECTION 1,250 MCG in NS (IVPB) 250 ML IV SCH (12:33)
--- NOTE | 2019-10-05 15:39 | NUR ---
this nurse notified of patients temperature of 38.4. this nurse giving PRN tylenol. will continue to monitor.
[2019-10-05] MEDS: ENOXAPARIN 40 MG/0.4 ML (LOVENOX) SYR SQ SCH (16:30)
[2019-10-06] VITALS (17 sets, daily range): BP systolic 101–165; BP diastolic 56–126
[2019-10-06] MEDS: PROPOFOL DRIP (ICU) 100 ML IV SCH (01:29)
[2019-10-06] MEDS: 1/2 NS W/KCL 20 MEQ/L 1,000 ML IV SCH ×2 (02:51→09:34)
[2019-10-06 03:27] LABS: BASOPHILS % (AUTO) 0 % (0-10); EOSINOPHILS # (AUTO) 0.3 10^3/uL (0.0-0.3); EOSINOPHILS % (AUTO) 4 % (0-10); HEMATOCRIT 38 % (40-54); HEMOGLOBIN 12.5 G/DL (13.3-17.7); LYMPHOCYTES # (AUTO) 1.2 X 10^3 (1.0-4.0); LYMPHOCYTES % (AUTO) 19 % (12-44); MEAN CORPUSCULAR HEMOGLOBIN 30 PG (25-34); MEAN CORPUSCULAR HGB CONC 33 G/DL (32-36); MEAN CORPUSCULAR VOLUME 92 FL (80-99); MEAN PLATELET VOLUME 9.7 FL (7.4-10.4); MONOCYTES # (AUTO) 0.5 X 10^3 (0.0-1.0); MONOCYTES % (AUTO) 8 % (0-12); NEUTROPHILS # (AUTO) 4.3 X 10^3 (1.8-7.8); NEUTROPHILS % (AUTO) 69 % (42-75); PLATELET COUNT 148 10^3/uL (130-400); RED CELL DISTRIBUTION WIDTH 13.8 % (10.0-14.5); WHITE BLOOD COUNT 6.2 10^3/uL (4.3-11.0)
[2019-10-06 03:43] LABS: ABG BASE EXCESS -3.1 MMOL/L (-2.5-2.5); ABG OXYGEN SATURATION 99 % (94-100); ABG PCO2 39 MMHG (35-45); ABG PH 7.36 (7.37-7.43); ABG PO2 111 MMHG (79-93); ABG TCO2 22.6 MMOL/L (21.0-31.0)
[2019-10-06 03:44] LABS: ALLENS TEST POSITIVE; INSPIRED O2 16; PATIENT TEMP 37.2; VENTILATOR YES
[2019-10-06 03:57] LABS: CARBON DIOXIDE 18 MMOL/L (21-32); CHLORIDE 109 MMOL/L (98-107); POTASSIUM 4.2 MMOL/L (3.6-5.0); SODIUM 138 MMOL/L (135-145)
[2019-10-06 03:58] LABS: BUN/CREATININE RATIO 10; CALCIUM 7.9 MG/DL (8.5-10.1); GFR ESTIMATED > 60; GLUCOSE 74 MG/DL (70-105); MAGNESIUM 2.1 MG/DL (1.6-2.4); PHOSPHORUS 2.5 MG/DL (2.3-4.7)
[2019-10-06] MEDS ORDERED: ZIPRASIDONE 20 MG INJ (GEODON) VIAL IM PRN (05:00)
[2019-10-06] MEDS ORDERED: DexMEDEtomidine 250 ML DRIP 250 ML IV SCH ×2 (05:00→15:30)
--- NOTE | 2019-10-06 05:04 | Pulmonary Progress Note ---
Subjective Date Seen by a Provider: Oct 05, 2019 (Late note for 10/04) Time Seen by a Provider: 07:12 Subjective/Events-last exam Sedating on vent Sepsis Event Evaluation Height, Weight, BMI Height: 5'9.00" Weight: 220lbs. 0.0oz. 99.045208am; 28.00 BMI Method:Stated Exam Exam Vital Signs Date Time Temp Pulse Resp B/P (MAP) Pulse Ox O2 Delivery O2 Flow Rate FiO2 10/06/19 04:00 Mechanical Ventilator 35 10/06/19 04:00 79 15 132/72 (92) 98 Mechanical Ventilator 35.00 10/06/19 04:00 37.2 10/06/19 02:17 80 26 100 35 10/06/19 02:00 76 19 134/75 (94) 100 Mechanical Ventilator 35.00 10/06/19 01:29 74 117/71 10/06/19 01:00 79 10/06/19 01:00 77 15 114/64 (81) 100 Mechanical Ventilator 35.00 10/06/19 00:00 80 20 145/81 (102) 100 Mechanical Ventilator 35.00 10/06/19 00:00 Mechanical Ventilator 35 10/06/19 00:00 35.6 10/05/19 23:43 76 138/81 10/05/19 23:00 73 20 123/70 (87) 100 Mechanical Ventilator 35.00 10/05/19 22:12 76 21 100 35 10/05/19 22:00 77 20 128/64 (85) 100 Mechanical Ventilator 35.00 10/05/19 21:00 73 20 123/72 (89) 100 Mechanical Ventilator 35.00 10/05/19 20:01 78 127/77 10/05/19 20:00 78 20 127/77 (94) 100 Mechanical Ventilator 35.00 10/05/19 20:00 Mechanical Ventilator 35 10/05/19 19:44 36.1 10/05/19 19:00 77 21 118/70 (86) 100 Mechanical Ventilator 35.00 10/05/19 19:00 77 10/05/19 18:25 80 20 100 35 10/05/19 18:00 82 21 108/58 (75) 100 Mechanical Ventilator 35.00 10/05/19 17:00 92 10 100/58 (72) 99 Mechanical Ventilator 35.00 10/05/19 16:35 38.0 10/05/19 16:08 38.0 10/05/19 16:00 95 25 103/52 (69) 97 Mechanical Ventilator 35.00 10/05/19 16:00 Mechanical Ventilator 35 10/05/19 15:51 37.8 10/05/19 15:38 38.4 10/05/19 15:30 38.4 10/05/19 15:11 94 26 97 35 10/05/19 15:00 100 41 102/58 (73) 96 Mechanical Ventilator 35.00 10/05/19 14:00 90 10 101/65 (77) 98 Mechanical Ventilator 35.00 10/05/19 13:00 89 15 109/63 (78) 97 Mechanical Ventilator 35.00 10/05/19 12:40 90 10/05/19 12:34 88 113/65 10/05/19 12:00 Mechanical Ventilator 35 10/05/19 12:00 87 20 117/66 (83) 97 Mechanical Ventilator 35.00 10/05/19 11:51 37.2 10/05/19 11:00 87 117/67 (84) 99 Mechanical Ventilator 35.00 10/05/19 10:00 87 8 117/66 (83) 99 Mechanical Ventilator 35.00 10/05/19 09:03 89 118/67 10/05/19 09:00 86 19 118/67 (84) 99 Mechanical Ventilator 35.00 10/05/19 08:30 37.2 10/05/19 08:13 84 23 99 35 10/05/19 08:00 80 21 122/73 (89) 100 Mechanical Ventilator 35.00 10/05/19 08:00 Mechanical Ventilator 35 10/05/19 07:35 37.1 10/05/19 07:00 77 10/05/19 07:00 78 22 114/64 (81) 100 Mechanical Ventilator 35.00 10/05/19 06:31 79 10/05/19 06:00 84 22 118/69 (85) 99 Mechanical Ventilator 35.00 I & O 10/06/19 07:00 Intake Total 1360 ml Output Total 4000 ml Balance -2640 ml Height & Weight Height: 5'9.00" Weight: 220lbs. 0.0oz. 99.518828ly; 28.00 BMI Method:Stated General Appearance: Other (sedated and intubated) HEENT: Moist Mucous Membranes, Other (ETT in place) Neck: Normal Inspection, Supple Respiratory: Lungs Clear, Other (on vent) Cardiovascular: Regular Rate, Rhythm, No Murmur Capillary Refill: Less Than 3 Seconds Peripheral Pulses: 2+ Dorsalis Pedis (R), 2+ Left Dors-Pedis (L), 2+ Radial Pulses (R), 2+ Radial Pulses (L) Gastrointestinal: normal bowel sounds, non tender, soft, no organomegaly Extremity: No Calf Tenderness, No Pedal Edema Neurologic/Psychiatric: Other (sedated, appears comfortable) Skin: Tattoos/Piercings Lymphatic: No Adenopathy Results Lab Laboratory Tests 10/05/19 04:20 10/06/19 03:21 Assessment/Plan Assessment/Plan Acute psychosis secondary to methamphetamine -Pt became very psychotic/combative while in ED prior to intubation -Start rispiradol and geodon PO today. Will plan on vent weaning tomorrow morning. Acute respiratory failure secondary to sedation -Continue vent for now Pulmonary edema -Monitor Rhabdomyolysis -IVF -Recheck labs ADA BORDEN DO Oct 06, 2019 05:04
[2019-10-06] MEDS: ZIPRASIDONE 20 MG (GEODON) CAP PO SCH (05:52)
[2019-10-06] MEDS: risperiDONE 2 MG (RisperDAL) TAB PO SCH (05:52)
[2019-10-06] MEDS: KCL 20 MEQ TAB (K-DUR) PO SCH (06:54)
[2019-10-06] MEDS: POTASSIUM CL 10MEQ/50ML IVPB 50 ML IV SCH (06:54)
[2019-10-06] MEDS: MAGNESIUM 1 GM/100 ML IVPB 100 ML IV SCH (06:54)
--- NOTE | 2019-10-06 07:14 | Pulmonary Progress Note ---
Subjective Date Seen by a Provider: Oct 06, 2019 Time Seen by a Provider: 07:13 Subjective/Events-last exam Sedated on vent Sepsis Event Evaluation Height, Weight, BMI Height: 5'9.00" Weight: 220lbs. 0.0oz. 99.341463sb; 28.00 BMI Method:Stated Exam Exam Vital Signs Date Time Temp Pulse Resp B/P (MAP) Pulse Ox O2 Delivery O2 Flow Rate FiO2 10/06/19 06:00 80 13 140/84 (102) 100 Mechanical Ventilator 35.00 10/06/19 05:53 80 135/78 10/06/19 05:00 78 20 135/79 (97) 100 Mechanical Ventilator 35.00 10/06/19 04:00 Mechanical Ventilator 35 10/06/19 04:00 79 15 132/72 (92) 98 Mechanical Ventilator 35.00 10/06/19 04:00 37.2 10/06/19 02:17 80 26 100 35 10/06/19 02:00 76 19 134/75 (94) 100 Mechanical Ventilator 35.00 10/06/19 01:29 74 117/71 10/06/19 01:00 79 10/06/19 01:00 77 15 114/64 (81) 100 Mechanical Ventilator 35.00 10/06/19 00:00 80 20 145/81 (102) 100 Mechanical Ventilator 35.00 10/06/19 00:00 Mechanical Ventilator 35 10/06/19 00:00 35.6 10/05/19 23:43 76 138/81 10/05/19 23:00 73 20 123/70 (87) 100 Mechanical Ventilator 35.00 10/05/19 22:12 76 21 100 35 10/05/19 22:00 77 20 128/64 (85) 100 Mechanical Ventilator 35.00 10/05/19 21:00 73 20 123/72 (89) 100 Mechanical Ventilator 35.00 10/05/19 20:01 78 127/77 10/05/19 20:00 78 20 127/77 (94) 100 Mechanical Ventilator 35.00 10/05/19 20:00 Mechanical Ventilator 35 10/05/19 19:44 36.1 10/05/19 19:00 77 21 118/70 (86) 100 Mechanical Ventilator 35.00 10/05/19 19:00 77 10/05/19 18:25 80 20 100 35 10/05/19 18:00 82 21 108/58 (75) 100 Mechanical Ventilator 35.00 10/05/19 17:00 92 10 100/58 (72) 99 Mechanical Ventilator 35.00 10/05/19 16:35 38.0 10/05/19 16:08 38.0 10/05/19 16:00 95 25 103/52 (69) 97 Mechanical Ventilator 35.00 10/05/19 16:00 Mechanical Ventilator 35 10/05/19 15:51 37.8 10/05/19 15:38 38.4 10/05/19 15:30 38.4 10/05/19 15:11 94 26 97 35 10/05/19 15:00 100 41 102/58 (73) 96 Mechanical Ventilator 35.00 10/05/19 14:00 90 10 101/65 (77) 98 Mechanical Ventilator 35.00 10/05/19 13:00 89 15 109/63 (78) 97 Mechanical Ventilator 35.00 10/05/19 12:40 90 10/05/19 12:34 88 113/65 10/05/19 12:00 Mechanical Ventilator 35 10/05/19 12:00 87 20 117/66 (83) 97 Mechanical Ventilator 35.00 10/05/19 11:51 37.2 10/05/19 11:00 87 117/67 (84) 99 Mechanical Ventilator 35.00 10/05/19 10:00 87 8 117/66 (83) 99 Mechanical Ventilator 35.00 10/05/19 09:03 89 118/67 10/05/19 09:00 86 19 118/67 (84) 99 Mechanical Ventilator 35.00 10/05/19 08:30 37.2 10/05/19 08:13 84 23 99 35 10/05/19 08:00 80 21 122/73 (89) 100 Mechanical Ventilator 35.00 10/05/19 08:00 Mechanical Ventilator 35 10/05/19 07:35 37.1 I & O 10/06/19 07:00 Intake Total 1460 ml Output Total 4800 ml Balance -3340 ml Height & Weight Height: 5'9.00" Weight: 220lbs. 0.0oz. 99.806618gx; 28.00 BMI Method:Stated General Appearance: Other (sedated and intubated) HEENT: Moist Mucous Membranes, Other (ETT in place) Neck: Normal Inspection, Supple Respiratory: Lungs Clear, Other (on vent) Cardiovascular: Regular Rate, Rhythm, No Murmur Capillary Refill: Less Than 3 Seconds Peripheral Pulses: 2+ Dorsalis Pedis (R), 2+ Left Dors-Pedis (L), 2+ Radial Pulses (R), 2+ Radial Pulses (L) Gastrointestinal: normal bowel sounds, non tender, soft, no organomegaly Extremity: No Calf Tenderness, No Pedal Edema Neurologic/Psychiatric: Other (sedated, appears comfortable) Skin: Tattoos/Piercings Lymphatic: No Adenopathy Results Lab Laboratory Tests 10/05/19 04:20 10/06/19 03:21 Assessment/Plan Assessment/Plan Acute psychosis secondary to methamphetamine -Will try to wean vent today -Pt became very psychotic/combative while in ED prior to intubation -Contineu rispiradol and geodon PO. Acute respiratory failure secondary to sedation Pulmonary edema -Monitor Rhabdomyolysis -IVF -Recheck labs ADA BORDEN DO Oct 06, 2019 07:14
--- NOTE | 2019-10-06 07:23 | Diagnostic Imaging Report ---
INDICATION: Ventilator support and dyspnea. TIME OF EXAM: 3:38 AM CORRELATION is made with prior chest from one day earlier. ET tube and NG tube remain in place. There is mild residual right perihilar and right basilar atelectasis. Left lung is clear. No effusion or pneumothorax. IMPRESSION: Stable chest since one day earlier. Dictated by: Dictated on workstation # [id number]
--- NOTE | 2019-10-06 08:02 | NUR ---
0802 propofol turned off. VSS. per 's orders. 0915 precedex turned off. VSS. per 's orders. 1003 patient is awake and is following all commands. patient's eyes are open, he is nodding and squeezed my hand on command. patient is being appropriate. 1006 RT is at bedside. 1010 patient extubated. VSS. Will continue to closely monitor. 1015 this nurse updated and that patient has been extubated. Will continue to closely monitor.
[2019-10-06] MEDS: MUPIROCIN 2% OINT 22 GM (BACTROBAN) TUBE NSEACH SCH (08:24)
[2019-10-06] MEDS: PANTOPRAZOLE 40 MG (PROTONIX) VIAL IV SCH (09:34)
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
--- NOTE | 2019-10-06 10:10 | NUR ---
OG tube removed
--- NOTE | 2019-10-06 10:10 | NUR ---
patients soft wrist restraints removed at 1010.
--- NOTE | 2019-10-06 15:15 | NUR ---
This nurse called to update him on patients behaviors. Patient is spitting on the floor and continues to try to get up. This nurse at x2 NT attempted to assist patient to chair but he is weak and is unable to hold himself up. I feel as though it is a safety risk getting patient up to chair att. will continue to assess and monitor. Bed alarm is on and bed is in lowest position with wheels locked. order received to restart IV precedex.
--- NOTE | 2019-10-06 15:30 | NUR ---
bed alarm on, call light in reach, bed in low position, phone and bedside table in reach. this nurse updated and educated patient on why he was in the hospital and on the ventilator, patient showing disinterest and disregard. 1540 patient stating that he is going to leave and wanted help calling a ride patient stated "I'm going to leave today one way or another, I will find a ride, I do not want to be here". this nurse attempted to call 3 different numbers that the patient requested for me to call and there was never an answer. patient continuing to get up and states that he is calling a cab because he will be leaving. patient educated multiple times by this nurse and by NT Nereyda about the importance of fall prevention and safety for the patient and staff. patient is very fidgety and agitated. This nurse and NT Nereyda assisting patient to stand at bedside. patient spitting on the floor. this nurse updated prepared foods team leader Liss BARTON and superintendent warehouse Jen. 1545-this nurse and NT in room frequently d/t patient yelling out and/or pressing call light frequently. patient is agitated and continues spitting on the floor. This nurse stated to patient that we would assist him with getting up out of bed but needed to remain safe. 1605 patient removed his telemetry, blood pressure cuff and oxygen sat monitor. This nurse educated patient on the importance of us being able to monitor his vital signs, patient stated that he did not care and did not want to be monitored. this nurse updated prepared foods team leader Liss BARTON, superintendent warehouse Jen and psychology technician. Patient stated that I needed to get his catheter out so he could leave. 1620- patient continuing to press call light frequently patient stated that he is going to leave and will be calling a cab. patient educated that leaving would be AMA, and explained risks that he would be taking by leaving AMA- (see AMA paper in chart). patient signed AMA paper. and both notified of patients behavior. patient cussing. 1625- this nurse, Liss BARTON and Paula BARTON all at bedside. both IV's removed. Sky catheter removed. patient standing now. he is able to walk but is unsteady. Remaining next to patient to prevent fall. Assisted patient getting dressed. patient given his belongings. patient requested for a cab. 1645- cab reports that they will arrive in 15 minutes. 170- cab arrived, patient got into cab and left premises. and notified again.
--- NOTE | 2019-10-06 19:36 | NUR ---
50ml of versed wasted with Nikki BARTON
--- NOTE | 2019-10-07 15:07 | Physician Query Clarification ---
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 Monterroso? Please document a response in Progress Note or Discharge Summary. 1. Yes 2. No 3. Other, with explanation of clinical findings 4. Clinically undetermined, no explanation for clinical findings. PHYSICIAN RESPONSE Do you agree w/Consulting Dx?: Yes Please remember a lack of response to the above will prompt a phone page by CDI/Coding staff. In responding to this query, please exercise your independent professional judgment. The purpose of this communication is to more accurately reflect the complexity of your patients condition. The fact that a question is asked does not imply that any particular answer is desired or expected. Thank you for your timely response to this clarification. Requestors name: Marifer THIS PHYSICIAN QUERY FORM IS A PERMANENT PART OF THE MEDICAL RECORD MARIFER KERNS Oct 07, 2019 15:07 AUGIE MOMIN MD Oct 14, 2019 14:29
--- NOTE | 2019-10-07 15:11 | Physician Query Clarification ---
PQ-Further Specificity Admission/Discharge Admission Date: Oct 03, 2019 at 09:16 Discharge Date: Oct 06, 2019 at 17:01 The medical record reflects the following clinical scenario: History/Risk Factors: meth abuse with intoxication and acute psychosis, acute respiratory failure, rhabdomyolysis, acute renal failure Clinical Findings: CXR - pulmonary edema Treatment: monitor Question: Can you further specify the acuity of the pulmonary edema per the clinical indicators above? Please document a response in the Progress Notes or Discharge Summary. 1. acute pulmonary edema 2. chronic pulmonary edema 3. Other, with explanation of the clinical findings. 4. Clinically undetermined, no explanation for the clinical findings. PHYSICIAN RESPONSE Can you specify per above: 1 Please remember a lack of response to the above will prompt a phone page by CDI/Coding staff. In responding to this query, please exercise your independent professional judgment. The purpose of this communication is to more accurately reflect the complexity of your patients condition. The fact that a question is asked does not imply that any particular answer is desired or expected. Thank you for your timely response to this clarification. Requestors name: Marifer THIS PHYSICIAN QUERY FORM IS A PERMANENT PART OF THE MEDICAL RECORD MARIFER KERNS Oct 07, 2019 15:11 ADA BORDEN DO Oct 24, 2019 05:45
--- NOTE | 2019-10-20 15:25 | Discharge Summary ---
Diagnosis/Chief Complaint Date of Admission Oct 03, 2019 at 09:16 Date of Discharge Oct 06, 2019 at 17:01 Admission Diagnosis Acute Respiratory Failure Primary Care No,Local Physician Discharge Diagnosis (1) Methamphetamine abuse (2) Acute respiratory failure (3) Rhabdomyolysis (4) Acute kidney injury (5) Transaminitis Status: Chronic Discharge Summary Discharge Physical Exam Allergies: Coded Allergies: acetaminophen (Verified Adverse Reaction, Unknown, 07/02/17) NAUSEA oxycodone HCl (Verified Adverse Reaction, Unknown, 07/02/17) NAUSEA General Appearance: WD/WN Hospital Course Pt was admitted for methamphetamine intoxication and subsequent respiratory failure. He was sedated and on mechanical ventilation. He had an otherwise uncomplicated stay and was quickly extubated. Shortly after extubation he became very frustrated and adamant regarding discharge. He elected to leave AMA and appropriate paperwork was signed. Labs (last 24 hrs) Microbiology 10/03/19 MRSA Screen - Final, Complete Patient resulted labs reviewed. Imaging: Reviewed Imaging Report Discussion & Recommendations Discharge Planning: >30 minutes discharge planning Discharge Home Medications: Active Scripts Active Motrin (Ibuprofen) 200 Mg Tablet 2-3 Each PO TID - QID PRN PRN Instructions to patient/family Please see electronic discharge instructions given to patient. Clinical Quality Measures DVT/VTE Risk/Contraindication: Risk Factor Score Per Nursin RFS Level Per Nursing on Admit: 3=High AUGIE MOMIN MD Oct 20, 2019 15:25
== END 2019-10-06 17:01 | disposition left against medical advice (07) | DRG 917 ==
LOC: EDUNIT# 05:24 → ER 05:26 → ICU 09:16 → UNDOADMIN 09:16 → ICU 13:45
PROVIDERS: ADMIT Family Medicine; ATTEND Family Medicine
PROC: 5A1945Z Respiratory Ventilation, 24-96 Consecutive Hours (ICD-10-PCS; principal; 2019-10-03)
PROC: 0BH17EZ Insertion of Endotracheal Airway into Trachea, Via Natural or Artificial Opening (ICD-10-PCS; 2019-10-03)
DX: T43.621A Poisoning by amphetamines, accidental (unintentional), initial encounter (principal); F15.121 Other stimulant abuse with intoxication delirium; J96.00 Acute respiratory failure, unspecified whether with hypoxia or hypercapnia; M62.82 Rhabdomyolysis; E87.2 Acidosis; N17.9 Acute kidney failure, unspecified; J81.0 Acute pulmonary edema; R74.0 Nonspecific elevation of levels of transaminase and lactic acid dehydrogenase [LDH]; F20.9 Schizophrenia, unspecified; F17.210 Nicotine dependence, cigarettes, uncomplicated; E83.39 Other disorders of phosphorus metabolism; Z22.322 Carrier or suspected carrier of Methicillin resistant Staphylococcus aureus
CPT/HCPCS: 31500; 36415; 51702; 70450; 71045; 71260; 72125; 74177; 80048; 80076; 80306; 80320; 81000; 82550; 82805; 82962; 83735; 83874; 83880; 84100; 84478; 84484; 85025; 85027; 87081; 93005; 93041; 94002; 94003; 94799; 96361; 96374; 96375; 99291; 99292

== ENCOUNTER 2019-10-28 14:08 | Emergency (ER) | payer SELFPAY ==
[~2019-10-28] VITALS: Ht 175 cm; Wt 88.0 kg
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
[2019-10-28] MEDS ORDERED: TETANUS,DIPTH,PERTUSS P/F (BOOSTRIX) 0.5 ML VIAL IM ONE (15:15)
[2019-10-28] MEDS ORDERED: SULF1TAB35 PO (16:14)
--- NOTE | 2019-10-28 16:15 | ED Integumentary General ---
General Chief Complaint: Skin/Wound Problems Stated Complaint: BITE Nursing Triage Note: pt presents to ed with complaints of l buttock wound x 7 days. reports he was seen at [facility] 10/25/19 and prescribed antibiotics and given an antiobiotic injection. Source: patient Exam Limitations: no limitations History of Present Illness Date Seen by Provider: Oct 28, 2019 Time Seen by Provider: 15:00 Initial Comments This 48-year-old man presents to the emergency room with complaints of an open abscess wound on the left buttock. This started about a week ago and he was seen at [facility]. He was started on clindamycin but the wound has not improved. It is now widely open and draining. There is necrotic and purulent material within the wound. He states early on there was some black eschar associated with the w ound. Allergies and Home Medications Allergies Coded Allergies: acetaminophen (Verified Adverse Reaction, Unknown, 07/02/17) NAUSEA oxycodone HCl (Verified Adverse Reaction, Unknown, 07/02/17) NAUSEA Home Medications Ibuprofen 200 Mg Tablet, 2-3 EACH PO TID - QID PRN PRN for PAIN Prescribed by: LJ THAKKAR on 06/19/132057 Sulfamethoxazole/Trimethoprim 1 Each Tablet, 1 EACH PO TID Prescribed by: MICHAEL MILTON on 10/28/19 1614 Patient Home Medication List Home Medication List Reviewed: Yes Review of Systems Review of Systems Constitutional: no symptoms reported; No fever EENTM: no symptoms reported Respiratory: no symptoms reported Cardiovascular: no symptoms reported Gastrointestinal: no symptoms reported Musculoskeletal: no symptoms reported Skin: see HPI Psychiatric/Neurological: No Symptoms Reported Endocrine: No Symptoms Reported Hematologic/Lymphatic: No Symptoms Reported Past Iorcpks-Kepakp-Dkpoqe Hx Past Med/Social Hx: Reviewed Nursing Past Med/Soc Hx Patient Social History Alcohol Use: Denies Use Recreational Drug Use: Yes Drug of Choice: methamphetamines Smoking Status: Never a Smoker Type Used: Cigarettes 2nd Hand Smoke Exposure: No Recent Foreign Travel: No Contact w/Someone Who Travel: No Recent Infectious Disease Expo: No Recent Hopitalizations: No Physical Abuse: No Sexual Abuse: No Mistreated: No Fear: No Immunizations Up To Date Tetanus Booster (TDap): More than 5yrs Seasonal Allergies Seasonal Allergies: No Past Medical History Surgeries: Yes (eye surgery) Respiratory: No Cardiac: No Neurological: No Reproductive Disorders: No HIV/AIDS: No Genitourinary: No Gastrointestinal: No Musculoskeletal: No Endocrine: No HEENT: No Cancer: No Psychosocial: No Schizophrenia Integumentary: No Blood Disorders: No Adverse Reaction/Blood Tranf: No Family Medical History No Pertinent Family Hx Physical Exam Vital Signs Vital Signs - First Documented 10/28/19 14:16 Temp 36.2 Pulse 84 Resp 18 B/P (MAP) 116/75 (89) Pulse Ox 96 Capillary Refill : Less Than 3 Seconds General Appearance: WD/WN, no apparent distress HEENT: normal ENT inspection Neck: normal inspection Cardiovascular: regular rate, rhythm, no edema, no murmur Respiratory: lungs clear, normal breath sounds, no respiratory distress Extremities: normal inspection 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 It measures about 1.5 cm in diameter and sounds to approximately 2 cm.) Skin Problem Character: abscess Procedures/Interventions Date of ETT Placement: Oct 03, 2019 Time of ETT Placement: 653 Suture Size: 4-0 Progress Wound culture was obtained and material was debrided from within the wound using forceps and suture scissors. There was minimal bleeding. Wound was then irrigated with 500 mL normal saline and chlorhexidine. Wound was then packed and dressed with gauze. Progress/Results/Core Measures Results/Orders My Orders Orders - MICHAEL STUBBS MD Wound Culture (10/28/19 15:12) Dipht,Pertuss(Acell),Tet Adult (Boostrix (10/28/19 15:15) Medications Given in ED Current Medications Medications Dose Ordered Sig/Joe Route Start Time Stop Time Status Last Admin Dose Admin Diphtheria/ Tetanus/Acell Pertussis 0.5 ml ONCE ONCE IM 10/28/19 15:15 10/28/19 15:16 DC 10/28/19 15:41 0.5 ML Vital Signs/I&O 10/28/19 10/28/19 14:16 16:24 Temp 36.2 36.2 Pulse 84 85 Resp 18 18 B/P (MAP) 116/75 (89) 120/71 (89) Pulse Ox 96 96 Blood Pressure Mean: 89 Progress Progress Note : Progress Note Wound was debrided, irrigated, and packed. Tetanus booster was administered. Wound culture was sent to lab. Wound was dressed with gauze. He was prescribed Bactrim to add to his antibiotic regimen. I contacted Dr. Henning and made arrangements for him to follow-up in wound care on October 29. He will see me again in the ER tomorrow for a wound check. Departure Impression Primary Impression: Abscess Additional Impression: Encounter for wound care Disposition: HOME, SELF-CARE Condition: Improved Departure-Patient Inst. Decision time for Depature: 16:10 Referrals: NO,LOCAL PHYSICIAN (PCP) Primary Care Physician JAVAN HENNING MD Patient Instructions: ABSCESS Add. Discharge Instructions: Return to the emergency room tomorrow between 6 a.m. and 6 p.m. to have your wound packing changed. Follow-up with the [facility] wound care clinic October 29 at 9:00 a.m. please call [phone] tomorrow to provide any further information and confirm your appointment time. Obtain it financial assistance paperwork upon discharge from the ER today. Start Bactrim DS as soon as possible and complete the entire course as prescribed. You may complete the clindamycin as prescribed previously. Return to the emergency room if you have worsening symptoms including development of fevers over 100. All discharge instructions reviewed with patient and/or family. Voiced understanding. Scripts Sulfamethoxazole/Trimethoprim (Bactrim Ds Tablet) 1 Each Tablet 1 EACH PO TID, #30 TAB Prov: MICHAEL STUBBS MD 10/28/19 Copy Copies To 1: JAVAN HENNING MD, JOSHUA T MD Oct 28, 2019 16:15
[2019-10-28 16:24] VITALS: BP 120/71
== END 2019-10-28 16:22 | disposition home or self-care (01) ==
LOC: EDUNIT# 14:08 → ER 14:09
DX: L02.31 Cutaneous abscess of buttock (principal); F20.9 Schizophrenia, unspecified; F15.90 Other stimulant use, unspecified, uncomplicated; Z23 Encounter for immunization
CPT/HCPCS: 10061; 87070; 87077; 87186; 87205; 90715

== ENCOUNTER → 2019-10-30 | Outpatient (CLI) | payer SELFPAY ==
[~2019-10-30] MED LIST changes: +SULF1TAB35 PO
== END ==
LOC: WOUNDCARE 10:37
PROVIDERS: ATTEND Surgery
DX: L98.492 Non-pressure chronic ulcer of skin of other sites with fat layer exposed (principal); L02.32 Furuncle of buttock; F15.288 Other stimulant dependence with other stimulant-induced disorder
CPT/HCPCS: 99214

== ENCOUNTER 2020-06-02 17:28 | Emergency (ER) | payer SELFPAY ==
[~2020-06-02] VITALS: Ht 172.7 cm; Wt 99.7 kg
--- NOTE | 2020-06-02 17:44 | NUR ---
Pt denies allergy to acetaminophen and oxycodone; requests removal from chart.
[2020-06-02] MEDS ORDERED: ORPHENADRINE 60 MG/2 ML (NORFLEX) AMP (ED ONLY) IM ONE (18:00)
[2020-06-02] MEDS ORDERED: KETOROLAC 60 MG/2 ML VIAL IM ONE (18:00)
--- NOTE | 2020-06-02 18:03 | ED Back Pain ---
General Chief Complaint: Back Problems Stated Complaint: LOW BACK PAIN Nursing Triage Note: Pt to ED in wheelchair. Pt reports sitting on the floor today and when pt tried to get up, pt began experiencing severe pain in back. Pt reports, "It feels as if legs are not working." Pt describes numbness and sharp pain. Pt reports pain began around noon today. Pt denies injury. Pt has not taken anything for pain. Nursing Sepsis Screen: No Definite Risk Source of Information: Patient Exam Limitations: No Limitations History of Present Illness Date Seen by Provider: Jun 02, 2020 Time Seen by Provider: 17:58 Initial Comments To ER with reports right lumbar paraspinous back pain. No fevers or chills, he states that this started earlier today after he sat down on the floor with his girlfriend who was having a seizure. Upon trying to get up he developed this severe pain. No loss of bowel or bladder control. No loss of sensation of genitals. No history of cancer. Does have a history of IV drug use about 6 months ago, but has not had any fevers chills or malaise and this pain was sudden onset after standing up. Location: Lumbar Spine, Paraspinous Muscles Timing/Duration: 1-2 Days Severity: Moderate Associated Symptoms: lower back pain Allergies and Home Medications Allergies Coded Allergies: acetaminophen (Verified Adverse Reaction, Unknown, Vomiting, 06/02/20) oxycodone (Verified Adverse Reaction, Unknown, Vomiting, 06/02/20) Home Medications Ibuprofen 200 Mg Tablet, 2-3 EACH PO TID - QID PRN PRN for PAIN Prescribed by: LJ THAKKAR on 06/19/132057 Sulfamethoxazole/Trimethoprim 1 Each Tablet, 1 EACH PO TID Prescribed by: MICHAEL MILTON on 10/28/19 1614 Patient Home Medication List Home Medication List Reviewed: Yes Review of Systems Constitutional: see HPI EENTM: see HPI Respiratory: no symptoms reported Cardiovascular: no symptoms reported Genitourinary: no symptoms reported Musculoskeletal: no symptoms reported Skin: no symptoms reported Psychiatric/Neurological: No Symptoms Reported Past Fuqswgg-Qrzvtb-Fkuyoq Hx Patient Social History Alcohol Use: Denies Use Recreational Drug Use: No Drug of Choice: methamphetamines Smoking Status: Former Smoker Type Used: Cigarettes 2nd Hand Smoke Exposure: No Recent Foreign Travel: No Contact w/Someone Who Travel: No Recent Infectious Disease Expo: No Recent Hopitalizations: No Immunizations Up To Date Tetanus Booster (TDap): More than 5yrs Seasonal Allergies Seasonal Allergies: No Past Medical History Surgeries: Yes (eye surgery) Eye Surgery Respiratory: No Cardiac: No Neurological: No Reproductive Disorders: No HIV/AIDS: No Genitourinary: No Gastrointestinal: Yes (Hep C) Hepatitis Musculoskeletal: No Endocrine: No HEENT: No Cancer: No Psychosocial: No Schizophrenia Integumentary: No Blood Disorders: No Adverse Reaction/Blood Tranf: No Family Medical History No Pertinent Family Hx Physical Exam Vital Signs Vital Signs - First Documented 06/02/20 17:38 Temp 36.5 Pulse 79 Resp 18 B/P (MAP) 101/71 (81) Pulse Ox 95 O2 Delivery Room Air Capillary Refill : Less Than 3 Seconds Height, Weight, BMI Height: 5'9.00" Weight: 220lbs. 0.0oz. 99.013832yc; 33.00 BMI Method:Stated General Appearance: No Apparent Distress, WD/WN Neck: Full Range of Motion, Normal Inspection Respiratory: Normal Breath Sounds, No Accessory Muscle Use, No Respiratory Distress Back: Normal Inspection; No Vertebral Tenderness Extremity: Normal Capillary Refill, Normal Inspection, Other (gps/law enforcement style ankle bracelet on left ankle. ) Neurologic/Psychiatric: Alert, Oriented x3 Skin: Normal Color, Warm/Dry Procedures/Interventions Date of ETT Placement: Oct 03, 2019 Time of ETT Placement: 653 Suture Size: 4-0 Progress/Results/Core Measures Results/Orders My Orders Orders - RICHY CURRY APRN Ketorolac Injection (Toradol Injection) (06/02/20 18:00) Orphenadrine Inj (Ed Only) (Norflex Inje (06/02/20 18:00) Medications Given in ED Current Medications Medications Dose Ordered Sig/Joe Route Start Time Stop Time Status Last Admin Dose Admin Ketorolac Tromethamine 60 mg ONCE ONCE IM 06/02/20 18:00 06/02/20 18:01 DC 06/02/20 18:11 60 MG Orphenadrine Citrate 60 mg ONCE ONCE IM 06/02/20 18:00 06/02/20 18:01 DC 06/02/20 18:13 60 MG Vital Signs/I&O 06/02/20 17:38 Temp 36.5 Pulse 79 Resp 18 B/P (MAP) 101/71 (81) Pulse Ox 95 O2 Delivery Room Air Blood Pressure Mean: 81 Departure Impression Primary Impression: Back pain Qualified Codes: M54.41 - Lumbago with sciatica, right side Disposition: 01 HOME, SELF-CARE Condition: Stable Departure-Patient Inst. Decision time for Depature: 18:55 Referrals: NO,LOCAL PHYSICIAN (PCP/Family) Primary Care Physician Patient Instructions: Low Back Pain (DC) Add. Discharge Instructions: 1. Return to ER for any worsening pain, fevers or chills or other concerns. If that happens you may need imaging studies and blood work. Take the muscle relaxers and anti-inflammatories as directed in the meantime. All discharge instructions reviewed with patient and/or family. Voiced understanding. Scripts Methocarbamol (Robaxin-750) 750 Mg Tablet 750 MG PO Q4H PRN for PAIN-MODERATE (5-7), #14 TAB Prov: RICHY CURRY APRN 06/02/20 Naproxen (Naprosyn) 500 Mg Tablet 500 MG PO BID PRN for PAIN-SEVERE (8-10), #30 TAB 0 Refills Prov: RICHY CURRY APRN 06/02/20 RICHY CURRY APRN Jun 02, 2020 18:03
[2020-06-02] MEDS ORDERED: METH-313 PO (18:57)
[2020-06-02] MEDS ORDERED: NAPR-1071 PO (18:57)
[2020-06-02 19:11] VITALS: BP 101/71
== END 2020-06-02 19:11 | disposition home or self-care (01) ==
LOC: EDUNIT# 17:28 → ER 17:29
DX: M54.5 Low back pain (principal); Z88.5 Allergy status to narcotic agent; Z87.891 Personal history of nicotine dependence
CPT/HCPCS: 99284

== ENCOUNTER 2020-12-25 14:46 | Emergency (ER) | payer SELFPAY ==
[~2020-12-25] VITALS: Ht 172 cm; Wt 107.0 kg
[~2020-12-25 14:46] MED LIST changes: +METH-313 PO; +NAPR-1071 PO
[2020-12-25] MEDS ORDERED: fentaNYL INJ 100 MCG/2 ML AMP IVP ONE (15:00)
[2020-12-25 15:06] LABS: BASOPHILS % (AUTO) 0 % (0-10); EOSINOPHILS # (AUTO) 0.2 10^3/uL (0.0-0.3); EOSINOPHILS % (AUTO) 2 % (0-10); HEMATOCRIT 47 % (40-54); HEMOGLOBIN 15.9 g/dL (13.3-17.7); LYMPHOCYTES # (AUTO) 2.4 X 10^3 (1.0-4.0); LYMPHOCYTES % (AUTO) 33 % (12-44); MEAN CORPUSCULAR HEMOGLOBIN 30 pg (25-34); MEAN CORPUSCULAR HGB CONC 34 g/dL (32-36); MEAN CORPUSCULAR VOLUME 88 fL (80-99); MEAN PLATELET VOLUME 9.1 fL (9.0-12.2); MONOCYTES # (AUTO) 0.6 X 10^3 (0.0-1.0); MONOCYTES % (AUTO) 8 % (0-12); NEUTROPHILS % (AUTO) 56 % (42-75); PLATELET COUNT 195 10^3/uL (130-400); WHITE BLOOD COUNT 7.1 10^3/uL (4.3-11.0)
--- NOTE | 2020-12-25 15:08 | ED GI ---
General Chief Complaint: Abdominal/GI Problems Stated Complaint: HERNIA Nursing Triage Note: ARRIVED VIA AMB TO ROOM 09. SENT FROM [facility] WITH A HERNIA. Sepsis Screen: Possible Severe Sepsis Risk Source of Information: Patient Exam Limitations: No Limitations History of Present Illness Date Seen by Provider: Dec 25, 2020 Time Seen by Provider: 15:06 Initial Comments To ER by private vehicle from [facility] with reports of an umbilical hernia. Has had this incarcerated umbilical hernia for a long time but for the past few weeks he has had some pain just above it and at the site of the umbilical hernia. He has had some vomiting for a few weeks he states. No fever s or chills. He is passing gas. He tells us that he is an IV drug user but has not used in about 48 hours. He uses IV methamphetamine. Timing/Duration: 1-2 Days Severity/Quality: Moderate Location: Generalized Abdomen Radiation: No Radiation Activities at Onset: None Associated Symptoms: Nausea/Vomiting Allergies and Home Medications Allergies Coded Allergies: acetaminophen (Verified Adverse Reaction, Unknown, Vomiting, 06/02/20) oxycodone (Verified Adverse Reaction, Unknown, Vomiting, 06/02/20) Home Medications Ibuprofen 200 Mg Tablet, 2-3 EACH PO TID - QID PRN PRN for PAIN Prescribed by: LJ THAKKAR on 06/19/132057 Methocarbamol 750 Mg Tablet, 750 MG PO Q4H PRN for PAIN-MODERATE (5-7) Prescribed by: RICHY CURRY on 06/02/20 185 Naproxen 500 Mg Tablet, 500 MG PO BID PRN for PAIN-SEVERE (8-10) Prescribed by: RICHY CURRY on 06/02/20 185 Naproxen 500 Mg Tablet, 500 MG PO BID PRN for PAIN-SEVERE (8-10) Prescribed by: RICHY CURRY on 12/25/20 1636 Sulfamethoxazole/Trimethoprim 1 Each Tablet, 1 EACH PO TID Prescribed by: MICHAEL MILTON on 10/28/19 1614 Patient Home Medication List Home Medication List Reviewed: Yes Review of Systems Review of Systems Constitutional: see HPI EENTM: No Symptoms Reported Respiratory: No Symptoms Reported Cardiovascular: No Symptoms Reported Gastrointestinal: See HPI, Abdominal Pain, Nausea Genitourinary: No Symptoms Reported Musculoskeletal: no symptoms reported Skin: no symptoms reported Psychiatric/Neurological: No Symptoms Reported Endocrine: No Symptoms Reported Hematologic/Lymphatic: No Symptoms Reported Past Stkpwrk-Unhscw-Qwqrza Hx Patient Social History Drug of Choice: methamphetamines Type Used: Cigarettes 2nd Hand Smoke Exposure: No Recent Infectious Disease Expo: No Recent Hopitalizations: No Immunizations Up To Date Tetanus Booster (TDap): More than 5yrs Seasonal Allergies Seasonal Allergies: No Past Medical History Surgeries: Yes (eye surgery) Eye Surgery Respiratory: No Cardiac: No Neurological: No Reproductive Disorders: No HIV/AIDS: No Genitourinary: No Gastrointestinal: Yes (Hep C) Hepatitis Musculoskeletal: No Endocrine: No HEENT: No Cancer: No Psychosocial: No Schizophrenia Integumentary: No Blood Disorders: No Adverse Reaction/Blood Tranf: No Family Medical History No Pertinent Family Hx Physical Exam Vital Signs Vital Signs - First Documented 12/25/20 14:50 Temp 35.6 Pulse 96 Resp 16 B/P (MAP) 89/ Pulse Ox 96 O2 Delivery Room Air Capillary Refill : Less Than 3 Seconds Height/Weight/BMI Height: 5'9.00" Weight: 220lbs. 0.0oz. 99.151194uj; 36.00 BMI Method:Stated General Appearance: WD/WN, no apparent distress HEENT: PERRL/EOMI, normal ENT inspection Respiratory: no respiratory distress, no accessory muscle use Cardiovascular: regular rate, rhythm, no murmur Gastrointestinal: normal bowel sounds, soft, tenderness (There is an umbilical hernia which is tender to palpation. The overlying skin is normal without erythema. Bowel sounds are normal.) Extremities: normal range of motion, non-tender Neurologic/Psychiatric: alert, normal mood/affect, oriented x 3 Skin: normal color, warm/dry Focused Exam Lactate Level 12/25/20 15:08: Lactic Acid Level 1.01 Lactic Acid Level Laboratory Tests Test 12/25/20 15:08 Lactic Acid Level 1.01 MMOL/L (0.50-2.00) Procedures/Interventions Date of ETT Placement: Oct 03, 2019 Time of ETT Placement: 653 Suture Size: 4-0 Progress/Results/Core Measures Results/Orders Lab Results Laboratory Tests Test 12/25/20 14:57 12/25/20 15:08 Range/Units White Blood Count 7.1 4.3-11.0 10^3/uL Red Blood Count 5.37 4.30-5.52 10^6/uL Hemoglobin 15.9 13.3-17.7 g/dL Hematocrit 47 40-54 % Mean Corpuscular Volume 88 80-99 fL Mean Corpuscular Hemoglobin 30 25-34 pg Mean Corpuscular Hemoglobin Concent 34 32-36 g/dL Red Cell Distribution Width 13.7 10.0-14.5 % Platelet Count 195 130-400 10^3/uL Mean Platelet Volume 9.1 9.0-12.2 fL Immature Granulocyte % (Auto) 0 % Neutrophils (%) (Auto) 56 42-75 % Lymphocytes (%) (Auto) 33 12-44 % Monocytes (%) (Auto) 8 0-12 % Eosinophils (%) (Auto) 2 0-10 % Basophils (%) (Auto) 0 0-10 % Neutrophils # (Auto) 4.0 1.8-7.8 X 10^3 Lymphocytes # (Auto) 2.4 1.0-4.0 X 10^3 Monocytes # (Auto) 0.6 0.0-1.0 X 10^3 Eosinophils # (Auto) 0.2 0.0-0.3 10^3/uL Basophils # (Auto) 0.0 0.0-0.1 10^3/uL Immature Granulocyte # (Auto) 0.0 0.0-0.1 10^3/uL Sodium Level 142 135-145 MMOL/L Potassium Level 4.2 3.6-5.0 MMOL/L Chloride Level 106 98-107 MMOL/L Carbon Dioxide Level 24 21-32 MMOL/L Anion Gap 12 5-14 MMOL/L Blood Urea Nitrogen 17 7-18 MG/DL Creatinine 1.09 0.60-1.30 MG/DL Estimat Glomerular Filtration Rate > 60 BUN/Creatinine Ratio 16 Glucose Level 108 H 70-105 MG/DL Calcium Level 8.9 8.5-10.1 MG/DL Corrected Calcium 8.7 8.5-10.1 MG/DL Total Bilirubin 0.7 0.1-1.0 MG/DL Aspartate Amino Transf (AST/SGOT) 64 H 5-34 U/L Alanine Aminotransferase (ALT/SGPT) 112 H 0-55 U/L Alkaline Phosphatase 71 40-136 U/L Total Protein 8.0 6.4-8.2 GM/DL Albumin 4.2 3.2-4.5 GM/DL Lactic Acid Level 1.01 0.50-2.00 MMOL/L My Orders Orders - RICHY CURRY APRN Cbc With Automated Diff (12/25/20 14:56) Comprehensive Metabolic Panel (12/25/20 14:56) Ed Iv/Invasive Line Start (12/25/20 14:56) Lactic Acid Analyzer (12/25/20 14:56) Ct Abdomen/Pelvis W (12/25/20 14:56) Fentanyl Inj (Sublimaze Injection) (12/25/20 15:00) Iohexol Injection (Omnipaque 350 Mg/Ml 1 (12/25/20 15:30) Received Contrast (Hold Metformin- Contr (12/25/20 15:30) Ns (Ivpb) (Sodium Chloride 0.9% Ivpb Bag (12/25/20 15:30) Ketorolac Injection (Toradol Injection) (12/25/20 16:45) Ketorolac Injection (Toradol Injection) (12/25/20 16:45) Medications Given in ED Current Medications Medications Dose Ordered Sig/Joe Route Start Time Stop Time Status Last Admin Dose Admin Fentanyl Citrate 50 mcg ONCE ONCE IVP 12/25/20 15:00 12/25/20 15:01 DC 12/25/20 15:14 50 MCG Iohexol 100 ml ONCE ONCE IV 12/25/20 15:30 12/25/20 15:32 DC 12/25/20 16:14 100 ML Sodium Chloride 100 ml ONCE ONCE IV 12/25/20 15:30 12/25/20 15:32 DC 12/25/20 16:14 80 ML Vital Signs/I&O 12/25/20 14:50 Temp 35.6 Pulse 96 Resp 16 B/P (MAP) 89/ Pulse Ox 96 O2 Delivery Room Air Departure Communication (Admissions) NAME: RENAN VÁSQUEZ MED REC#: [id number] PT STATUS: REG ER : 1970 PHYSICIAN: RICHY CURRY APRN ADMIT DATE: 12/25/20/ER Draft Date of Exam:12/25/20 CT ABDOMEN/PELVIS W PROCEDURE: CT abdomen and pelvis with contrast. TECHNIQUE: Multiple contiguous axial images were obtained through the abdomen and pelvis after administration of intravenous contrast. Auto Exposure Controls were utilized during the CT exam to meet ALARA standards for radiation dose reduction. All CT scans use one or more of the following dose optimizing techniques: automated exposure control, MA and/or KvP adjustment based on patient size and exam type or iterative reconstruction. INDICATION: Umbilical hernia with pain COMPARISON with abdominal pelvic CT 10/03/2019 FINDINGS: Fatty umbilical hernia measures 4.8 cm maximal transverse previously 3.9 cm. The hernial orifice has a diameter of 2.1 cm, unchanged. There may be very slight stranding of the fat within the hernia sac at the level of the neck but this is not clearly changed from prior. No herniation of viscus. No new abdominal wall pathology. The lung bases are clear. There is a tiny cyst in the left hepatic lobe chronic liver otherwise unremarkable. The gallbladder appeared normal and there is no bile duct dilatation. The spleen, adrenals and pancreas unremarkable. There is no hydroureteronephrosis. The aorta is patent and nonaneurysmal. The appendix is visualized and normal. There is no diverticulitis. Prostate, seminal vesicles and urinary bladder unremarkable. No mesenteric or retroperitoneal lymphadenopathy. There are possible adjacent tiny 2 mm punctate nonobstructing stones within the left renal lower pole calyces. No hydronephrosis or opaque ureteral calculi. IMPRESSION: There is mild increased volume of fat herniated through the umbilicus. There is minimal stranding of the fat but this appears very similar to a comparison. No herniation of viscus. No new abdominal wall pathology. Questionable findings for tiny punctate nonobstructing left renal lower pole calculi. No hydronephrosis or ureteral stone. Chronic tiny subcentimeter left lobe liver cyst. Dictated on workstation # [id number] Dict: 12/25/20 1616 Trans: 12/25/20 1631 [facility] [id number] Interpreted by: HENRY GABRIEL Electronically signed by: Impression Primary Impression: Umbilical hernia Disposition: 01 HOME, SELF-CARE Condition: Stable Departure-Patient Inst. Decision time for Depature: 16:35 Referrals: [facility] (PCP/Family) Primary Care Physician JACOB GARCIA BRETT D DO KIDO, TAKAAKI MD Patient Instructions: Abdominal Wall Hernias Add. Discharge Instructions: 1. Call one of the surgeons Monday to make an appointment to be seen. All discharge instructions reviewed with patient and/or family. Voiced unders tanding. Scripts Naproxen (Naprosyn) 500 Mg Tablet 500 MG PO BID PRN for PAIN-SEVERE (8-10), #30 TAB 0 Refills Prov: RICHY CURRY APRN 12/25/20 Copy Copies To 1: KEITH TEJEDA PETER J APRN Dec 25, 2020 15:08
[2020-12-25 15:25] LABS: ALBUMIN 4.2 GM/DL (3.2-4.5); CHLORIDE 106 MMOL/L (98-107); POTASSIUM 4.2 MMOL/L (3.6-5.0); SODIUM 142 MMOL/L (135-145)
[2020-12-25 15:27] LABS: CALCIUM 8.9 MG/DL (8.5-10.1)
[2020-12-25 15:28] LABS: GLUCOSE 108 MG/DL (70-105)
[2020-12-25 15:29] LABS: CARBON DIOXIDE 24 MMOL/L (21-32)
[2020-12-25 15:30] LABS: BILIRUBIN,TOTAL 0.7 MG/DL (0.1-1.0)
[2020-12-25] MEDS ORDERED: HOLD METFORMIN - RECEIVED CONTRAST 20 ML VIAL IV SCH (15:30)
[2020-12-25] MEDS ORDERED: IOHEXOL 350 MG/ML 100 ML (OMNIPAQUE 350) VIAL IV ONE (15:30)
[2020-12-25] MEDS ORDERED: NS 100 ML (IVPB) BAG IV ONE (15:30)
[2020-12-25 15:31] LABS: ALKALINE PHOSPHATASE 71 U/L (40-136); CREATININE SERUM 1.09 MG/DL (0.60-1.30); GFR ESTIMATED > 60
[2020-12-25 15:32] LABS: BUN/CREATININE RATIO 16
[2020-12-25 15:34] LABS: ALANINE AMINOTRANSFERASE 112 U/L (0-55)
--- NOTE | 2020-12-25 16:31 | Diagnostic Imaging Report ---
PROCEDURE: CT abdomen and pelvis with contrast. TECHNIQUE: Multiple contiguous axial images were obtained through the abdomen and pelvis after administration of intravenous contrast. Auto Exposure Controls were utilized during the CT exam to meet ALARA standards for radiation dose reduction. All CT scans use one or more of the following dose optimizing techniques: automated exposure control, MA and/or KvP adjustment based on patient size and exam type or iterative reconstruction. INDICATION: Umbilical hernia with pain COMPARISON with abdominal pelvic CT 10/03/2019 FINDINGS: Fatty umbilical hernia measures 4.8 cm maximal transverse previously 3.9 cm. The hernial orifice has a diameter of 2.1 cm, unchanged. There may be very slight stranding of the fat within the hernia sac at the level of the neck but this is not clearly changed from prior. No herniation of viscus. No new abdominal wall pathology. The lung bases are clear. There is a tiny cyst in the left hepatic lobe chronic liver otherwise unremarkable. The gallbladder appeared normal and there is no bile duct dilatation. The spleen, adrenals and pancreas unremarkable. There is no hydroureteronephrosis. The aorta is patent and nonaneurysmal. The appendix is visualized and normal. There is no diverticulitis. Prostate, seminal vesicles and urinary bladder unremarkable. No mesenteric or retroperitoneal lymphadenopathy. There are possible adjacent tiny 2 mm punctate nonobstructing stones within the left renal lower pole calyces. No hydronephrosis or opaque ureteral calculi. IMPRESSION: There is mild increased volume of fat herniated through the umbilicus. There is minimal stranding of the fat but this appears very similar to a comparison. No herniation of viscus. No new abdominal wall pathology. Questionable findings for tiny punctate nonobstructing left renal lower pole calculi. No hydronephrosis or ureteral stone. Chronic tiny subcentimeter left lobe liver cyst. Dictated by: Dictated on workstation # [id number]
[2020-12-25] MEDS ORDERED: NAPR-1071 PO (16:36)
[2020-12-25] MEDS ORDERED: KETOROLAC 15 MG/ML VIAL IVP ONE (16:45)
[2020-12-25] MEDS ORDERED: KETOROLAC 30 MG/ML VIAL IVP ONE (16:45)
[2020-12-25 16:54] VITALS: BP 127/89
== END 2020-12-25 16:54 | disposition home or self-care (01) ==
LOC: EDUNIT# 14:46 → ER 14:48
DX: K42.0 Umbilical hernia with obstruction, without gangrene (principal); Z88.6 Allergy status to analgesic agent; Z88.5 Allergy status to narcotic agent
CPT/HCPCS: 36415; 74177; 80053; 83605; 85025

== ENCOUNTER 2021-02-03 05:35 | Outpatient (CLI) | payer MEDICAID ==
[~2021-02-03] VITALS: Ht 175.3 cm; Wt 107.3 kg
[~2021-02-03 05:35] MED LIST changes: -SULF1TAB35 PO; +SULF1TAB38 PO
== END 2021-02-08 13:21 | disposition home or self-care (01) ==
LOC: PREOP 05:35
PROVIDERS: ATTEND Surgery
DX: Z01.818 Encounter for other preprocedural examination (principal)

== ENCOUNTER 2021-02-10 08:06 | Day surgery (SDC) | payer MEDICAID ==
[~2021-02-10] VITALS: Ht 172.7 cm; Wt 107.3 kg
--- NOTE | 2021-02-10 08:27 | Progress Note-Pre Operative ---
Pre-Operative Progress Note H&P Reviewed The H&P was reviewed, patient examined and no changes noted. Time Seen by Provider: 08:26 Date H&P Reviewed: Feb 10, 2021 Time H&P Reviewed: 08:26 Pre-Operative Diagnosis: Incarcerated umbilical hernia JACOB GARCIA DO Feb 10, 2021 08:27
[2021-02-10] MEDS ORDERED: LACTATED RINGERS 1,000 ML IV PRN (08:30)
[2021-02-10] MEDS ORDERED: ceFAZolin 2 GM IV Premixed 50 ML IV ONE (08:30)
[2021-02-10 08:34] LABS: AMPHETAMINE SCREEN, URINE NEGATIVE (NEGATIVE); BARBITURATE SCREEN URINE NEGATIVE (NEGATIVE); BENZODIAZEPINES SCREEN URINE NEGATIVE (NEGATIVE); CANNABINOID SCREEN, URINE NEGATIVE (NEGATIVE); COCAINE SCREEN URINE NEGATIVE (NEGATIVE); METHADONE STAT NEGATIVE (NEGATIVE); METHAMPHETAMINE SCREEN URINE S POSITIVE (NEGATIVE); OPIATE SCREEN URINE NEGATIVE (NEGATIVE); OXYCODONE STAT NEGATIVE (NEGATIVE); PROPOXYPHENE STAT NEGATIVE (NEGATIVE); TRICYCLIC ANTIDEPRESSANTS SCRE NEGATIVE (NEGATIVE)
[2021-02-10 08:35] VITALS: BP 122/76
[2021-02-10] MEDS ORDERED: CATHETER FLUSH 10 ML SYR IV PRN (08:45)
== END 2021-02-10 09:45 | disposition home or self-care (01) ==
LOC: SDC 08:06
PROVIDERS: ATTEND Surgery
DX: K42.0 Umbilical hernia with obstruction, without gangrene (principal); Z53.8 Procedure and treatment not carried out for other reasons; F20.9 Schizophrenia, unspecified; Z87.891 Personal history of nicotine dependence
CPT/HCPCS: 80306

== ENCOUNTER 2022-03-29 19:19 | Emergency (ER) | payer MEDICAID ==
[~2022-03-29] VITALS: Ht 175.3 cm; Wt 99.7 kg
[2022-03-29 21:46] LABS: CLARITY,URINE CLEAR; COLOR,URINE YELLOW; GLUCOSE, URINE (UA) NEGATIVE (NEGATIVE); KETONES,URINE NEGATIVE (NEGATIVE); LEUKOCYTE ESTERASE ,URINE NEGATIVE (NEGATIVE); NITRITE,URINE NEGATIVE (NEGATIVE); PROTEIN,URINE NEGATIVE (NEGATIVE)
[2022-03-29 21:57] LABS: BACTERIA,URINE NEGATIVE /HPF; BILIRUBIN,URINE 1+ (NEGATIVE); WBC,URINE 0-2 /HPF
[2022-03-29 23:59] LABS: BASOPHILS % (AUTO) 1 % (0-10); EOSINOPHILS # (AUTO) 0.1 10^3/uL (0.0-0.3); EOSINOPHILS % (AUTO) 2 % (0-10); HEMATOCRIT 45 % (40-54); HEMOGLOBIN 15.2 g/dL (13.3-17.7); LYMPHOCYTES # (AUTO) 2.3 10^3/uL (1.0-4.0); LYMPHOCYTES % (AUTO) 37 % (12-44); MEAN CORPUSCULAR HEMOGLOBIN 30 pg (25-34); MEAN CORPUSCULAR HGB CONC 34 g/dL (32-36); MEAN CORPUSCULAR VOLUME 88 fL (80-99); MEAN PLATELET VOLUME 9.2 fL (9.0-12.2); MONOCYTES # (AUTO) 0.7 10^3/uL (0.0-1.0); MONOCYTES % (AUTO) 11 % (0-12); NEUTROPHILS % (AUTO) 49 % (42-75); PLATELET COUNT 218 10^3/uL (130-400); WHITE BLOOD COUNT 6.2 10^3/uL (4.3-11.0)
[2022-03-30 00:07] LABS: ALBUMIN 3.7 GM/DL (3.2-4.5); POTASSIUM 4.1 MMOL/L (3.6-5.0)
[2022-03-30 00:10] LABS: TOTAL PROTEIN 7.6 GM/DL (6.4-8.2)
[2022-03-30 00:12] LABS: BILIRUBIN,TOTAL 0.6 MG/DL (0.1-1.0)
[2022-03-30 00:13] LABS: CREATININE SERUM 0.94 MG/DL (0.60-1.30)
[2022-03-30] MEDS ORDERED: HOLD METFORMIN - RECEIVED CONTRAST 20 ML VIAL IV SCH (01:00)
[2022-03-30] MEDS ORDERED: NS 100 ML (IVPB) BAG IV ONE (01:00)
[2022-03-30] MEDS ORDERED: IOHEXOL 350 MG/ML 100 ML (OMNIPAQUE 350) VIAL IV ONE (01:00)
[2022-03-30] MEDS ORDERED: TRAM-42 PO (01:58)
--- NOTE | 2022-03-30 02:00 | ED Abdominal Pain ---
General Chief Complaint: Abdominal/GI Problems Stated Complaint: HERNIA PAIN Nursing Triage Note: PT AMB TO TRIAGE WITH COMPLAINT OF UMBILICAL HERNIA PAIN. STATES STARTED 3 DAYS AGO. ALSO HAS DIARRHEA AND CHILLS. Source of Information: Patient Exam Limitations: No Limitations History of Present Illness Date Seen by Provider: Mar 29, 2022 Time Seen by Provider: 19:54 Allergies and Home Medications Allergies Coded Allergies: acetaminophen (Verified Adverse Reaction, Unknown, Vomiting, 06/02/20) oxycodone (Verified Adverse Reaction, Unknown, Vomiting, 06/02/20) Patient Home Medication List No Active Prescriptions or Reported Meds Past Atyjqam-Hyljjg-Gkplfk Hx Patient Social History Tobacco Use?: Yes Tobacco type used: Cigarettes Smoking Status: Current Everyday Smoker Use of E-Cig and/or Vaping dev: No Substance use?: Yes Substance type: Methamphetamine Alcohol Use?: No Pt feels they are or have been: No Immunizations Up To Date Tetanus Booster (TDap): More than 5yrs Seasonal Allergies Seasonal Allergies: No Past Medical History Surgeries: Yes (eye surgery) Eye Surgery Respiratory: No Cardiac: No Neurological: No Reproductive Disorders: No HIV/AIDS: No Genitourinary: No Gastrointestinal: Yes (Hep C) Abdominal Hernia, Hepatitis Musculoskeletal: No Endocrine: No HEENT: No Cancer: No Psychosocial: No Schizophrenia Integumentary: No Blood Disorders: No Adverse Reaction/Blood Tranf: No Family Medical History No Pertinent Family Hx Physical Exam Vital Signs Vital Signs - First Documented 03/29/22 19:38 Temp 36.9 Pulse 101 Resp 20 B/P (MAP) 124/82 (96) Pulse Ox 98 O2 Delivery Room Air Capillary Refill : Less Than 3 Seconds Height/Weight/BMI Height: 5'9.00" Weight: 220lbs. 0.0oz. 99.875344hm; 32.00 BMI Method:Stated Procedures/Interventions Date of ETT Placement: Oct 03, 2019 Time of ETT Placement: 0654 Suture Size: 4-0 Progress/Results/Core Measures Results/Orders Lab Results Laboratory Tests Test 03/29/22 21:31 03/29/22 21:33 03/29/22 23:51 Range/Units Influenza Type A (RT-PCR) Not Detected Not Detecte Influenza Type B (RT-PCR) Not Detected Not Detecte SARS-CoV-2 RNA (RT-PCR) Not Detected Not Detecte Urine Color YELLOW Urine Clarity CLEAR Urine pH 5.0 5-9 Urine Specific [place] >=1.030 1.016-1.022 Urine Protein NEGATIVE NEGATIVE Urine Glucose (UA) NEGATIVE NEGATIVE Urine Ketones NEGATIVE NEGATIVE Urine Nitrite NEGATIVE NEGATIVE Urine Bilirubin 1+ H NEGATIVE Urine Urobilinogen 0.2 < = 1.0 MG/DL Urine Leukocyte Esterase NEGATIVE NEGATIVE Urine RBC (Auto) NEGATIVE NEGATIVE Urine RBC NONE /HPF Urine WBC 0-2 /HPF Urine Squamous Epithelial Cells NONE /HPF Urine Renal Epithelial Cells NONE /HPF Urine Crystals NONE /LPF Urine Bacteria NEGATIVE /HPF Urine Casts NONE /LPF Urine Mucus LARGE H /LPF Urine Culture Indicated NO White Blood Count 6.2 4.3-11.0 10^3/uL Red Blood Count 5.10 4.30-5.52 10^6/uL Hemoglobin 15.2 13.3-17.7 g/dL Hematocrit 45 40-54 % Mean Corpuscular Volume 88 80-99 fL Mean Corpuscular Hemoglobin 30 25-34 pg Mean Corpuscular Hemoglobin Concent 34 32-36 g/dL Red Cell Distribution Width 13.0 10.0-14.5 % Platelet Count 218 130-400 10^3/uL Mean Platelet Volume 9.2 9.0-12.2 fL Immature Granulocyte % (Auto) 1 % Neutrophils (%) (Auto) 49 42-75 % Lymphocytes (%) (Auto) 37 12-44 % Monocytes (%) (Auto) 11 0-12 % Eosinophils (%) (Auto) 2 0-10 % Basophils (%) (Auto) 1 0-10 % Neutrophils # (Auto) 3.0 1.8-7.8 10^3/uL Lymphocytes # (Auto) 2.3 1.0-4.0 10^3/uL Monocytes # (Auto) 0.7 0.0-1.0 10^3/uL Eosinophils # (Auto) 0.1 0.0-0.3 10^3/uL Basophils # (Auto) 0.0 0.0-0.1 10^3/uL Immature Granulocyte # (Auto) 0.1 0.0-0.1 10^3/uL Sodium Level 140 135-145 MMOL/L Potassium Level 4.1 3.6-5.0 MMOL/L Chloride Level 105 98-107 MMOL/L Carbon Dioxide Level 24 21-32 MMOL/L Anion Gap 11 5-14 MMOL/L Blood Urea Nitrogen 13 7-18 MG/DL Creatinine 0.94 0.60-1.30 MG/DL Estimat Glomerular Filtration Rate 99 BUN/Creatinine Ratio 14 Glucose Level 96 70-105 MG/DL Calcium Level 9.0 8.5-10.1 MG/DL Corrected Calcium 9.2 8.5-10.1 MG/DL Total Bilirubin 0.6 0.1-1.0 MG/DL Aspartate Amino Transf (AST/SGOT) 32 5-34 U/L Alanine Aminotransferase (ALT/SGPT) 54 0-55 U/L Alkaline Phosphatase 69 40-136 U/L Total Protein 7.6 6.4-8.2 GM/DL Albumin 3.7 3.2-4.5 GM/DL My Orders Orders - MICHAEL STUBBS MD Covid 19 Inhouse Test (03/29/22 19:54) Influenza A And B By Pcr (03/29/22 19:54) Ua Culture If Indicated (03/29/22 19:54) Cbc With Automated Diff (03/29/22 23:48) Comprehensive Metabolic Panel (03/29/22 23:48) Ed Iv/Invasive Line Start (03/29/22 23:48) Ct Abdomen/Pelvis W (03/30/22 00:19) Iohexol Injection (Omnipaque 350 Mg/Ml 1 (03/30/22 01:00) Received Contrast (Hold Metformin- Contr (03/30/22 01:00) Ns (Ivpb) (Sodium Chloride 0.9% Ivpb Bag (03/30/22 01:00) Medications Given in ED Current Medications Medications Dose Ordered Sig/Joe Route Start Time Stop Time Status Last Admin Dose Admin Iohexol 100 ml ONCE ONCE IV 03/30/22 01:00 03/30/22 01:01 DC 03/30/22 00:53 80 ML Sodium Chloride 100 ml ONCE ONCE IV 03/30/22 01:00 03/30/22 01:01 DC 03/30/22 00:53 80 ML Vital Signs/I&O 03/29/22 19:38 Temp 36.9 Pulse 101 Resp 20 B/P (MAP) 124/82 (96) Pulse Ox 98 O2 Delivery Room Air Blood Pressure Mean: 96 Departure Impression Primary Impression: Umbilical hernia Qualified Codes: K42.9 - Umbilical hernia without obstruction or gangrene Additional Impression: Abdominal pain Qualified Codes: R10.33 - Periumbilical pain Disposition: 01 HOME, SELF-CARE Condition: Improved Departure-Patient Inst. Decision time for Depature: 01:55 Referrals: [facility] (PCP/Family) Primary Care Physician Patient Instructions: Umbilical Hernia, Adult Add. Discharge Instructions: For primary pain control try taking ibuprofen 400 mg every 6 hours as needed. Add Ultram (tramadol) as prescribed for pain not controlled by ibuprofen. Ultram may cause drowsiness or constipation so use with caution. You may wish to use a stool softener such as Colace along with Ultram to prevent constipation. You should not use Ultram if you have ever had a seizure. Follow-up with a general surgeon to discuss surgical repair of your umbilical hernia. Abdominal binder to apply gentle pressure to the bulging area of hernia may be helpful in reducing discomfort. Return to the ER if you have worsening symptoms despite using medications as described above or if your hernia becomes hard and cannot be reduced (gently pushed in flat). Also return to the ER if you have vomiting, stop producing bowel movements or gas, develop fever, or develop other significant symptoms. A list of general surgeons is provided below for your convenience. A referral from primary care provider may be necessary. Contact your insurance company to determine if a referral is necessary. All discharge instructions reviewed with patient and/or family. Voiced understanding. Scripts Tramadol HCl (Ultram) 50 Mg Tablet 50 MG PO Q6H PRN for PAIN-BREAKTHROUGH, #10 TAB Prov: MICHAEL STUBBS MD 03/30/22 MICHAEL STUBBS MD Mar 30, 2022 02:00
[2022-03-30 02:13] VITALS: BP 122/77
--- NOTE | 2022-03-30 07:17 | Diagnostic Imaging Report ---
EXAMINATION: CT abdomen and pelvis with intravenous contrast. TECHNIQUE: Multiple contiguous axial images were obtained through the abdomen and pelvis after the uneventful administration of intravenous contrast. All CT scans use one or more of the following dose optimizing techniques: automated exposure control, MA and/or KvP adjustment based on patient size and exam type or iterative reconstruction. HISTORY: Abdominal pain. Umbilical hernia. COMPARISON: 12/25/2020. FINDINGS: The heart is unremarkable. The included lung bases are clear. Nonspecific hypoattenuating focus is seen in the left hepatic lobe, stable compared to the prior exam. No enhancing hepatic lesions are seen. The portal vein is patent. The gallbladder is nondistended. The spleen is enlarged measuring 15.3 cm. No focal splenic lesions. Punctate nonobstructing calculi are seen in the inferior pole of the left kidney measuring up to 0.3 cm. No obstructing calculi or hydronephrosis. No solid renal mass. The urinary bladder is nondistended. The pancreas and adrenal glands have a normal appearance. There is no pathologically enlarged mesenteric or retroperitoneal adenopathy. The bowel loops are nondilated. The appendix is visualized in the right lower quadrant and has a normal appearance. There is wall thickening of the colon throughout. There is no free fluid or free air. No acute osseous abnormalities. A periumbilical hernia is visualized measuring 1.7 cm at its neck. This contains fat with associated inflammatory changes present. There is no free air, loculated collection, or adenopathy in the pelvis. IMPRESSION: 1. . Fat-containing periumbilical hernia with associated inflammation. No entrapped loops of bowel are identified. Recommend correlation with physical exam and if indicated surgical consultation. 2. Generalized wall thickening of the colon, which may represent inadequate distention versus colitis. No bowel obstruction. No free fluid or free air. Agree with overnight report. Dictated by: Dictated on workstation # [id number]
== END 2022-03-30 02:15 | disposition home or self-care (01) ==
LOC: EDUNIT# 19:19 → ER 19:20
DX: K42.9 Umbilical hernia without obstruction or gangrene (principal); F17.210 Nicotine dependence, cigarettes, uncomplicated; Z20.822 Contact with and (suspected) exposure to COVID-19; Z28.310 Unvaccinated for COVID-19
CPT/HCPCS: 36415; 74177; 80053; 81000; 85025; 87636

== ENCOUNTER 2023-06-03 13:50 | Emergency (ER) | payer MEDICAID ==
[~2023-06-03] VITALS: Ht 175.3 cm; Wt 99.7 kg
[~2023-06-03 13:50] MED LIST changes: +TRAM-42 PO
--- NOTE | 2023-06-03 14:11 | ED Abdominal Pain ---
General Chief Complaint: Abdominal/GI Problems Stated Complaint: UMBILICAL HERNIA/VOMITING Source of Information: Patient Exam Limitations: No Limitations History of Present Illness Date Seen by Provider: Jun 03, 2023 Time Seen by Provider: 14:09 Initial Comments Patient is a 52-year-old male with a history of hep C, umbilical hernia presents ED for abdominal pain vomiting and diarrhea. Symptoms started on Monday. States he has been having intermittent vomiting as well as diarrhea. He has noted some increasing pain around his umbilical hernia. States a few years ago he did follow-up with a general surgeon but did not end up getting surgery. He has noted increasing pain over the past few hours to the umbilical hernia. No obvious skin color changes. States he does have mucousy stools without any bloody stools. Denies any fever chills chest pain, shortness of breath, cough sore throat or ear pain. Denies taking thing for pain. Currently being treated for hep C. History of methamphetamine use. Allergies and Home Medications Allergies Coded Allergies: acetaminophen (Verified Adverse Reaction, Unknown, Vomiting, 06/02/20) oxycodone (Verified Adverse Reaction, Unknown, Vomiting, 06/02/20) Patient Home Medication List Home Medication List Reviewed: Yes Tramadol HCl (Ultram) 50 Mg Tablet, 50 MG PO Q6H PRN for PAIN-BREAKTHROUGH Prescribed by: MICHAEL MILTON on 03/30/22 0159 Review of Systems Review of Systems Constitutional: No chills, No diaphoresis, No weakness EENTM: No Double Vision, No Eye Pain Respiratory: Denies Cough, Denies Orthopnea Cardiovascular: Denies Chest Pain Gastrointestinal: Abdominal Pain, Diarrhea, Nausea, Vomiting Genitourinary: Denies Burning, Denies Discharge Musculoskeletal: No back pain, No joint pain Skin: No change in color, No change in hair/nails All Other Systems Reviewed Negative Unless Noted: Yes Past Ojfexvp-Yejhak-Nluamb Hx Immunizations Up To Date Tetanus Booster (TDap): More than 5yrs Seasonal Allergies Seasonal Allergies: No Past Medical History Surgeries: Yes (eye surgery) Eye Surgery Respiratory: No Cardiac: No Neurological: No Reproductive Disorders: No HIV/AIDS: No Genitourinary: No Gastrointestinal: Yes (Hep C, umbilical hernia) Abdominal Hernia, Hepatitis Musculoskeletal: No Endocrine: No HEENT: No Cancer: No Psychosocial: Yes Schizophrenia Integumentary: No Blood Disorders: No Adverse Reaction/Blood Tranf: No Family Medical History No Pertinent Family Hx Physical Exam Vital Signs Vital Signs - First Documented 06/03/23 14:01 Temp 37.0 Pulse 86 Resp 16 B/P (MAP) 128/89 (102) Pulse Ox 97 O2 Delivery Room Air Capillary Refill : Height/Weight/BMI Height: 5'9.00" Weight: 220lbs. 0.0oz. 99.681950tw; 32.00 BMI Method:Stated General Appearance: WD/WN, no apparent distress HEENT: PERRL/EOMI, normal ENT inspection, TMs normal, pharynx normal Neck: non-tender, full range of motion, supple, normal inspection Respiratory: chest non-tender, lungs clear, normal breath sounds, no respiratory distress Cardiovascular: regular rate, rhythm, no edema, no gallop, no JVD Gastrointestinal: normal bowel sounds, soft, no organomegaly, tenderness (umblical hernia noted. Tenderness to palpate. 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, no motor/sensory deficits, alert Procedures/Interventions Date of ETT Placement: Oct 03, 2019 Time of ETT Placement: 653 Suture Size: 4-0 Progress/Results/Core Measures Results/Orders Lab Results Laboratory Tests Test 06/03/23 14:17 06/03/23 14:55 06/03/23 15:08 Range/Units White Blood Count 10.2 4.3-11.0 10^3/uL Red Blood Count 5.51 4.30-5.52 10^6/uL Hemoglobin 16.9 13.3-17.7 g/dL Hematocrit 49 40-54 % Mean Corpuscular Volume 88 80-99 fL Mean Corpuscular Hemoglobin 31 25-34 pg Mean Corpuscular Hemoglobin Concent 35 32-36 g/dL Red Cell Distribution Width 13.2 10.0-14.5 % Platelet Count 212 130-400 10^3/uL Mean Platelet Volume 9.8 9.0-12.2 fL Immature Granulocyte % (Auto) 0 % Neutrophils (%) (Auto) 68 42-75 % Lymphocytes (%) (Auto) 24 12-44 % Monocytes (%) (Auto) 6 0-12 % Eosinophils (%) (Auto) 2 0-10 % Basophils (%) (Auto) 0 0-10 % Neutrophils # (Auto) 6.9 1.8-7.8 10^3/uL Lymphocytes # (Auto) 2.5 1.0-4.0 10^3/uL Monocytes # (Auto) 0.6 0.0-1.0 10^3/uL Eosinophils # (Auto) 0.2 0.0-0.3 10^3/uL Basophils # (Auto) 0.0 0.0-0.1 10^3/uL Immature Granulocyte # (Auto) 0.0 0.0-0.1 10^3/uL Percent Immature Platelet Fraction 2.1 0.0-7.6 % Sodium Level 133 L 135-145 MMOL/L Potassium Level 4.2 3.6-5.0 MMOL/L Chloride Level 107 98-107 MMOL/L Carbon Dioxide Level 21 21-32 MMOL/L Anion Gap 5 5-14 MMOL/L Blood Urea Nitrogen 18 7-18 MG/DL Creatinine 0.88 0.60-1.30 MG/DL Estimat Glomerular Filtration Rate 105 BUN/Creatinine Ratio 20 Glucose Level 102 70-105 MG/DL Calcium Level 8.6 8.5-10.1 MG/DL Corrected Calcium 8.8 8.5-10.1 MG/DL Total Bilirubin 0.8 0.1-1.0 MG/DL Aspartate Amino Transf (AST/SGOT) 31 5-34 U/L Alanine Aminotransferase (ALT/SGPT) 43 0-55 U/L Alkaline Phosphatase 62 40-136 U/L Total Protein 7.4 6.4-8.2 GM/DL Albumin 3.8 3.2-4.5 GM/DL Lipase 16 8-78 U/L Urine Color YELLOW Urine Clarity SLIGHTLY CLOUDY Urine pH 5.5 5-9 Urine Specific Rebuck 1.025 H 1.016-1.022 Urine Protein NEGATIVE NEGATIVE Urine Glucose (UA) NEGATIVE NEGATIVE Urine Ketones NEGATIVE NEGATIVE Urine Nitrite NEGATIVE NEGATIVE Urine Bilirubin NEGATIVE NEGATIVE Urine Urobilinogen 0.2 < = 1.0 MG/DL Urine Leukocyte Esterase NEGATIVE NEGATIVE Urine RBC (Auto) NEGATIVE NEGATIVE Urine RBC NONE /HPF Urine WBC 0-2 /HPF Urine Crystals NONE /LPF Urine Bacteria NEGATIVE /HPF Urine Casts NONE /LPF Urine Mucus SMALL H /LPF Urine Other FEW SPERM H /HPF Urine Culture Indicated NO My Orders Orders - SHANE HERNANDEZ Cbc And Automated Diff (06/03/23 14:07) Comprehensive Metabolic Panel (06/03/23 14:07) Lipase (06/03/23 14:07) Ua Culture If Indicated (06/03/23 14:07) Ct Abdomen/Pelvis W (06/03/23 14:07) Drug Screen Stat (Urine) (06/03/23 14:07) Iohexol Injection (Omnipaque 350 Mg/Ml 1 (06/03/23 14:15) Received Contrast (Hold Metformin- Contr (06/03/23 14:15) Ns (Ivpb) 100 Ml (Sodium Chloride 0.9% 1 (06/03/23 14:15) Medications Given in ED Current Medications Medications Dose Ordered Sig/Joe Route Start Time Stop Time Status Last Admin Dose Admin Iohexol 100 ml ONCE ONCE IV 06/03/23 14:15 06/03/23 14:19 DC 06/03/23 14:58 80 ML Sodium Chloride 100 ml ONCE ONCE IV 06/03/23 14:15 06/03/23 14:19 DC 06/03/23 14:58 100 ML Vital Signs/I&O 06/03/23 14:01 Temp 37.0 Pulse 86 Resp 16 B/P (MAP) 128/89 (102) Pulse Ox 97 O2 Delivery Room Air Departure Communication (PCP) Patient presents ED with vomiting and diarrhea since Monday with pain around his umbilical hernia. He states In 2020 he was scheduled to get surgery but this did not end up happening. He states he developed worsening pain over the past 2 hours. Not able to reduce the hernia. Soft to palpate no surrounding induration or skin color changes. CBC, CMP, lipase CT abdomen pelvis was ordered.'s CBC, CMP was grossly unremarkable. CT abdomen pelvis does show a fat-containing umbilical hernia similar from previous imaging last year [address] scan. No bowel involvement. Patient refused anything for pain. Patient may have an underlying gastroenteritis with vomiting and diarrhea. He is tolerating p.o. fluids. No evidence of diverticulitis, colitis at this time. Provided outpatient general surgery follow-up. Continue with oral hydration. If any worsening symptoms such as pain fever to return back to ED. provided follow-up with Dr. Berry. Impression Primary Impression: Umbilical hernia Disposition: 01 HOME, SELF-CARE Condition: Stable Departure-Patient Inst. Decision time for Depature: 15:14 Referrals: [facility] [place]) Primary Care Physician JACOB BERRY DO Patient Instructions: Umbilical Hernia, Adult Add. Discharge Instructions: Recommend following up with surgery for further evaluation for the umbilical hernia. Continue staying hydrated. tylenol and ibuprofen for pain. All discharge instructions reviewed with patient and/or family. Voiced understanding. SHANE HERNANDEZ Jun 03, 2023 14:11
[2023-06-03] MEDS ORDERED: IOHEXOL 350 MG/ML 100 ML (OMNIPAQUE 350) VIAL IV ONE (14:15)
[2023-06-03] MEDS ORDERED: HOLD METFORMIN - RECEIVED CONTRAST 20 ML VIAL IV SCH (14:15)
[2023-06-03] MEDS ORDERED: NS 100 ML (IVPB) BAG IV ONE (14:15)
[2023-06-03 14:24] LABS: HEMATOCRIT 49 % (40-54); MEAN CORPUSCULAR VOLUME 88 fL (80-99)
[2023-06-03 14:26] LABS: BASOPHILS % (AUTO) 0 % (0-10); EOSINOPHILS # (AUTO) 0.2 10^3/uL (0.0-0.3); EOSINOPHILS % (AUTO) 2 % (0-10); HEMOGLOBIN 16.9 g/dL (13.3-17.7); LYMPHOCYTES # (AUTO) 2.5 10^3/uL (1.0-4.0); LYMPHOCYTES % (AUTO) 24 % (12-44); MEAN CORPUSCULAR HEMOGLOBIN 31 pg (25-34); MEAN CORPUSCULAR HGB CONC 35 g/dL (32-36); MEAN PLATELET VOLUME 9.8 fL (9.0-12.2); MONOCYTES # (AUTO) 0.6 10^3/uL (0.0-1.0); MONOCYTES % (AUTO) 6 % (0-12); NEUTROPHILS # (AUTO) 6.9 10^3/uL (1.8-7.8); NEUTROPHILS % (AUTO) 68 % (42-75); PLATELET COUNT 212 10^3/uL (130-400); WHITE BLOOD COUNT 10.2 10^3/uL (4.3-11.0)
--- NOTE | 2023-06-03 15:05 | Diagnostic Imaging Report ---
PROCEDURE: CT abdomen and pelvis with contrast. TECHNIQUE: Multiple contiguous axial images were obtained through the abdomen and pelvis after administration of intravenous contrast. Auto Exposure Controls were utilized during the CT exam to meet ALARA standards for radiation dose reduction. All CT scans use one or more of the following dose optimizing techniques: automated exposure control, MA and/or KvP adjustment based on patient size and exam type or iterative reconstruction. INDICATION: Mid abdominal pain. COMPARISON: 03/30/2022. DISCUSSION: Lung bases are well-aerated. Normal heart size. No pleural or pericardial fluid. Small cyst within the left hepatic lobe is stable. Otherwise the liver, gallbladder, pancreas, stomach, spleen, and adrenal glands are unremarkable. No renal stone on the right. There is a punctate 2 to 3 mm stone inferiorly on the left. No hydronephrosis on either side. Aorta is normal in caliber. Urinary bladder and prostate are unremarkable. No evidence for appendicitis. The large and small bowel loops appear within normal limits. No constipation or obstruction. No free air. There is a large fat-containing periumbilical hernia which is similar in appearance to the prior exam. Again there is some induration of the fat suggesting some venous congestion or inflammation. There is no bowel involvement. No ascites or adenopathy. No osseous abnormality identified. IMPRESSION: 1. Fat-containing periumbilical hernia is again noted with mild induration associated with the hernia contents. No bowel involvement. 2. Punctate nonobstructing left renal calculus. Dictated by: Dictated on workstation # [id number]
[2023-06-03 15:14] LABS: ALBUMIN 3.8 GM/DL (3.2-4.5); POTASSIUM 4.2 MMOL/L (3.6-5.0)
[2023-06-03 15:15] LABS: CALCIUM 8.6 MG/DL (8.5-10.1)
[2023-06-03 15:16] LABS: TOTAL PROTEIN 7.4 GM/DL (6.4-8.2)
[2023-06-03 15:18] LABS: BILIRUBIN,TOTAL 0.8 MG/DL (0.1-1.0)
[2023-06-03 15:20] LABS: CREATININE SERUM 0.88 MG/DL (0.60-1.30)
[2023-06-03 15:31] LABS: BILIRUBIN,URINE NEGATIVE (NEGATIVE); CLARITY,URINE SLIGHTLY CLOUDY; COLOR,URINE YELLOW; GLUCOSE, URINE (UA) NEGATIVE (NEGATIVE); KETONES,URINE NEGATIVE (NEGATIVE); NITRITE,URINE NEGATIVE (NEGATIVE); PH,URINE 5.5 (5-9); PROTEIN,URINE NEGATIVE (NEGATIVE)
[2023-06-03 15:32] LABS: BACTERIA,URINE NEGATIVE /HPF; LEUKOCYTE ESTERASE ,URINE NEGATIVE (NEGATIVE); URINE OTHER FEW SPERM /HPF; WBC,URINE 0-2 /HPF
[2023-06-03 15:35] LABS: AMPHETAMINE SCREEN, URINE POSITIVE (NEGATIVE); BARBITURATE SCREEN URINE NEGATIVE (NEGATIVE); CANNABINOID SCREEN, URINE NEGATIVE (NEGATIVE); COCAINE SCREEN URINE NEGATIVE (NEGATIVE); METHADONE STAT NEGATIVE (NEGATIVE); OPIATE SCREEN URINE NEGATIVE (NEGATIVE); OXYCODONE STAT NEGATIVE (NEGATIVE); TRICYCLIC ANTIDEPRESSANTS SCRE NEGATIVE (NEGATIVE)
[2023-06-03 15:41] VITALS: BP 114/70
== END 2023-06-03 15:40 | disposition home or self-care (01) ==
LOC: EDUNIT# 13:50 → ER 13:52
DX: K42.9 Umbilical hernia without obstruction or gangrene (principal)
CPT/HCPCS: 36415; 74177; 80053; 80306; 81000; 83690; 85025